=== PATIENT | female | born 1950 | race Caucasian/White ===

== ENCOUNTER 2018-11-01 12:05 | Observation (INO) | payer MEDICARE, BC ==
[2018-11-01 12:49] LABS: CHLORIDE,CL 103 mmol/L (98-107); SODIUM,NA 141 mmol/L (136-145)
[2018-11-01] MEDS ORDERED: Morphine 4 MG/ML Syringe IVPUSH ONE (12:51)
[2018-11-01] MEDS ORDERED: Ondansetron 4 MG/2 ML SDV IVPUSH ONE (12:51)
[2018-11-01] MEDS ORDERED: Iopamidol 612 MG/ML 100 ML Bottle IVPUSH ONE (13:00)
[2018-11-01] MEDS: Sodium Chloride 0.9% 10 ML Syringe FLUSH PRN (13:10)
[2018-11-01] MEDS ORDERED: Metoprolol Tartrate 25 MG Tab PO ONE (13:34)
--- NOTE | 2018-11-01 13:35 | EDM.PDOC ---
ED HPI GENERAL MEDICAL PROBLEM - General Chief Complaint: General Stated Complaint: neck pain, tongue pain, ear pain, right sided Time Seen by Provider: 11/01/18 12:34 Source of Information: Reports: Patient History Limitations: Reports: No Limitations - History of Present Illness INITIAL COMMENTS - FREE TEXT/NARRATIVE: 5 day history of increasing right jaw pain. Radiates to ear/down neck. Sharp, stabbing at times. Difficult to swallow. No change in hearing/vision/ taste. Did have episodic right tongue numbness. No obvious swelling. No fevers/chills. No history of similar pain in past. No specific tooth pain. Worse laying down, swallowing, or when turning head. No history of trauma. History of chronic sinusitis. No rashes/skin changes. Duration: Constant, Getting Worse right ear, jaw, tongue, neck Pain Score (Numeric/FACES): 7 - Related Data Allergies Allergy/AdvReac Type Severity Reaction Status Date / Time codeine Allergy Headache Verified 11/01/18 12:17 Home Meds: Home Meds Insulin Detemir [Levemir] 18 unit SUBCUT BEDTIME 11/01/18 [History] Lansoprazole [Prevacid] 30 mg PO DAILY 11/01/18 [History] Non-Formulary Medication [NF Drug] 1 each PO DAILY 11/01/18 [History] Non-Formulary Medication [NF Drug] 1 each PO DAILY 11/01/18 [History] Non-Formulary Medication [NF Drug] 1 injection SUBCUT BEDTIME 11/01/18 [History] atorvaSTATin [Lipitor] 10 mg PO BEDTIME 11/01/18 [History] metFORMIN HCl [Glucophage] 1,000 mg PO BID 11/01/18 [History] Past Medical History Gastrointestinal History: Reports: GERD Psychiatric History: Reports: Anxiety, Depression Endocrine/Metabolic History: Reports: IDDM, Obesity/BMI 30+ Social & Family History - Family History Family Medical History: Noncontributory - Tobacco Use Smoking Status *Q: Former Smoker (Quit 2000) - Caffeine Use Caffeine Use: Reports: Coffee - Alcohol Use Alcohol Use History: No Alcohol Use in Last Twelve Months: No - Recreational Drug Use Recreational Drug Use: No Drug Use in Last 12 Months: No ED ROS GENERAL - Review of Systems Review Of Systems: See Below Constitutional: Reports: Decreased Appetite. Denies: Fever, Chills, Weakness, Night Sweats, Diaphoresis HEENT: Reports: Sinus Problem (chronic), Other (right sided mid face pain as described in HPI. Radiates towards right ear and down right neck). Denies: Dental Pain, Ear Pain, Hearing Loss, Rhinitis, Throat Swelling, Vertigo, Vision Change Respiratory: Reports: No Symptoms Cardiovascular: Reports: No Symptoms Endocrine: Reports: Other (Has diabetes, does not check sugars. ) GI/Abdominal: Reports: No Symptoms : Reports: No Symptoms Musculoskeletal: Reports: Neck Pain Skin: Reports: No Symptoms Neurological: Reports: Numbness (right tongue). Denies: Confusion, Dizziness, Headache, Trouble Speaking, Difficulty Walking, Weakness, Change in Speech, Gait Disturbance Psychiatric: Reports: Anxiety ED EXAM, GENERAL - Physical Exam Exam: See Below Exam Limited By: No Limitations General Appearance: Alert, WD/WN, Moderate Distress Eye Exam: Bilateral Eye: EOMI, PERRL Ears: Normal External Exam, Normal Canal, Hearing Grossly Normal, Normal TMs Nose: No: Nasal Deformity, Nasal Swelling, Nasal Drainage Throat/Mouth: Normal Lips, Normal Teeth, Normal Gums, Normal Voice, No Airway Compromise, Other (palpation over teeth does not trigger pain complaint) Head: Atraumatic, Normocephalic. No: Facial Swelling, Facial Tenderness, Sinus Tenderness Neck: Supple, Other (unable to reproduce pain with palpation of neck tissue). No: Lymphadenopathy (L), Lymphadenopathy (R) Respiratory/Chest: No Respiratory Distress, Lungs Clear, Normal Breath Sounds, No Accessory Muscle Use Cardiovascular: Regular Rate, Rhythm, No Murmur GI/Abdominal: Soft, Non-Tender (Female) Exam: Deferred Rectal (Female) Exam: Deferred Back Exam: No: CVA Tenderness (L), CVA Tenderness (R) Extremities: Normal Range of Motion, Normal Capillary Refill Neurological: Alert, Oriented, CN II-XII Intact, Normal Cognition, Normal Gait, No Motor/Sensory Deficits Psychiatric: Anxious Skin Exam: Warm, Dry, Intact, Normal Color, No Rash EKG INTERPRETATION EKG Date: 11/01/18 Time: 12:36 Rhythm: NSR Rate (Beats/Min): 78 [place]: Normal P-Wave: Present QRS: Normal ST-T: Normal QT: Normal Course - Vital Signs Last Recorded V/S: Last Vital Signs Temp 37.1 C 11/01/18 12:10 Pulse 73 11/01/18 14:10 Resp 17 11/01/18 14:10 BP 133/80 11/01/18 14:39 Pulse Ox 93 L 11/01/18 14:10 - Orders/Labs/Meds Orders: Active Orders 24 hr Category Date Time Status EKG Documentation Completion [RC] ASDIRECTED Care 11/01/18 12:18 Active Soft Tissue Neck w Cont [CT] Stat Exams 11/01/18 12:36 Taken CRP [C-REACTIVE PROTEIN] [CHEM] Stat Lab 11/01/18 13:41 Ordered SEDIMENTATION RATE AUTO [HEME] Stat Lab 11/01/18 13:40 Ordered Sodium Chloride 0.9% [Saline Flush] Med 11/01/18 13:04 Active 10 ml FLUSH ASDIRECTED PRN Medication Orders Sodium Chloride (Saline Flush) 10 ml FLUSH ASDIRECTED PRN PRN Reason: Keep Vein Open Last Admin: 11/01/18 13:10 Dose: 10 ml Labs: Laboratory Tests 11/01/18 11/01/18 11/01/18 Range/Units 12:30 12:30 12:30 WBC 10.5 H (4.0-10.2) K/uL RBC 4.59 (3.77-5.09) M/uL Hgb 13.6 (11.7-15.5) g/dL Hct 41.0 (34.0-46.0) % MCV 89.3 (84.0-98.0) fL MCH 29.6 (28.2-33.3) pg MCHC 33.2 (31.7-36.0) g/dL RDW 14.4 H (11.2-14.1) % Plt Count 301 (150-350) K/uL Neut % (Auto) 69.6 (45.0-80.0) % Lymph % (Auto) 21.7 (10.0-50.0) % [place] % (Auto) 5.2 (2.0-14.0) % Eos % (Auto) 3.2 (0.0-5.0) % Baso % (Auto) 0.3 (0.0-2.0) % Neut # (Auto) 7.33 H (1.40-7.00) K/uL Lymph # (Auto) 2.29 (0.50-3.50) K/uL [place] # (Auto) 0.55 (0.00-1.00) K/uL Eos # (Auto) 0.34 (0.00-0.50) K/uL Baso # (Auto) 0.03 (0.00-0.20) K/uL Sodium 141 (136-145) mmol/L Potassium 4.0 (3.5-5.1) mmol/L Chloride 103 (98-107) mmol/L Carbon Dioxide 24.0 (21.0-32.0) mmol/L BUN 13 (7-18) mg/dL Creatinine 0.62 (0.51-1.17) mg/dL Est Cr Clr Drug Dosing TNP Estimated GFR (MDRD) > 60 mL/min Glucose 206 H (74-106) mg/dL Lactic Acid 2.6 H (0.4-2.0) mmol/L Calcium 8.9 (8.5-10.1) mg/dL Total Bilirubin 0.4 (0.2-1.0) mg/dL AST 17 (15-37) U/L ALT 41 (12-78) U/L Alkaline Phosphatase 114 (46-116) IU/L Troponin I 0.000 (0.000-0.056) ng/mL Total Protein 7.5 (6.4-8.2) g/dL Albumin 4.1 (3.4-5.0) g/dL Meds: Medications Generic Name Dose Route Start Last Admin Trade Name Freq PRN Reason Stop Dose Admin Sodium Chloride 10 ml 11/01/18 13:04 11/01/18 13:10 Saline Flush FLUSH 10 ml ASDIRECTED PRN Administration Keep Vein Open Discontinued Medications Generic Name Dose Route Start Last Admin Trade Name Freq PRN Reason Stop Dose Admin Iopamidol 100 ml 11/01/18 13:00 Isovue-300 (61%) IVPUSH 11/01/18 13:01 ONETIME ONE Metoprolol Tartrate 25 mg 11/01/18 13:34 11/01/18 13:51 Lopressor PO 11/01/18 13:35 25 mg ONETIME ONE Administration Morphine Sulfate 4 mg 11/01/18 12:51 11/01/18 13:08 Morphine IVPUSH 11/01/18 12:52 4 mg ONETIME ONE Administration Ondansetron HCl 4 mg 11/01/18 12:51 11/01/18 13:08 Zofran IVPUSH 11/01/18 12:52 4 mg ONETIME ONE Administration - Re-Assessments/Exams Free Text/Narrative Re-Assessment/Exam: 11/01/18 13:[address] of neck ordered after Radiology recommended this as being best focal study given history and presentation. MS for pain given. WBC mildly elevated. Lactic acid elevated. 11/01/18 15:05 BP improved after MS. Call placed to [facility] and patient discussed with from ENT. Given history and presentation, lack of physical findings, and negative CT, he feels that this sounds more like a Trigeminal Neuralgia complaint. Recommended follow up with Neuro and ENT if symptoms do not improve. Patient finally able to lay down flat after MS. Willing to be admitted to observation so that we can monitor her response to pain interventions as well as continue to monitor her BP and blood sugars. Departure - Departure Time of Disposition: 14:41 Disposition: Refer to Observation Condition: Good Clinical Impression: Acute facial pain Hypertension Qualifiers: Hypertension type: unspecified Qualified Code(s): I10 - Essential (primary) hypertension - Discharge Information Referrals: Belinda Valenzuela PA-C [Primary Care Provider] - Forms: ED Department Discharge - Problem List & Annotations (1) Acute facial pain SNOMED Code(s): 931331622 Code(s): R51 - HEADACHE Status: Acute Priority: High Onset Date: ~10/21 Annotation/Comment:: right sided pain midface, lower jaw, radiates down toward neck and to right ear. Worse laying flat, turning head/opening jaw. Unremarkable CT other than large styloid processes. Discussed patient with on-call ENT from [place]. He felt that pattern most likely reflects Trigeminal Neuralgia. Recommended Gabapentin and steroids, as well as follow up with Neuro and ENT if symptoms persist. Literature review shows Carbamazepine is recommended and FDA approved for this indication. Palpation of face does NOT trigger pain, which one would usually find in Trigeminal Neuralgia patients. Also, pain never completely goes away, which is also atypical of Trigeminal Neuralgia. Consider other causes of pain, including TMJ arthritis. Consider MRI study for further workup. Also differential includes pain related to patient's long styloid processes. (2) Hypertension SNOMED Code(s): 58705351 Code(s): I10 - ESSENTIAL (PRIMARY) HYPERTENSION Status: Acute Priority: High Annotation/Comment:: Significantly elevated BP noted upon arrival. Patient denies history of HTN. Improved once pain improved, also given Metoprolol. Monitor for trends. Qualifiers: Hypertension type: unspecified Qualified Code(s): I10 - Essential (primary ) hypertension (3) Diabetes SNOMED Code(s): 50030566 Code(s): E11.9 - TYPE 2 DIABETES MELLITUS WITHOUT COMPLICATIONS Status: Chronic Priority: Medium Annotation/Comment:: Poorly controlled. Patient continues to eat high glycemic diet. Does not check blood sugars at all at home. Is on insulin. Anticipate acute elevation of blood sugars secondary to steroids that have been ordered for facial pain. (4) Anxiety and depression SNOMED Code(s): 58690258 Code(s): F41.9 - ANXIETY DISORDER, UNSPECIFIED; F32.9 - MAJOR DEPRESSIVE DISORDER, SINGLE EPISODE, UNSPECIFIED Status: Chronic Priority: Low Annotation/Comment:: Currently not under therapy, patient stopped taking meds due to side effects of somnolence. Denies suicidal/homicidal thoughts. (5) Thyroid nodule SNOMED Code(s): 471299963 Code(s): E04.1 - NONTOXIC SINGLE THYROID NODULE Status: Acute Priority: Medium Annotation/Comment:: Right thyroid nodule noted on CT. US study recommended by Radiology. - Problem List Review Problem List Initiated/Reviewed/Updated: Yes - My Orders Last 24 Hours: My Active Orders 11/01/18 12:18 EKG Documentation Completion [RC] ASDIRECTED 11/01/18 12:36 Soft Tissue Neck w Cont [CT] Stat 11/01/18 13:04 Sodium Chloride 0.9% [Saline Flush] 10 ml FLUSH ASDIRECTED PRN 11/01/18 13:40 SEDIMENTATION RATE AUTO [HEME] Stat 11/01/18 13:41 CRP [C-REACTIVE PROTEIN] [CHEM] Stat - Assessment/Plan Admission H&P: Please use this note as an admission H&P Last 24 Hours: My Active Orders 11/01/18 12:18 EKG Documentation Completion [RC] ASDIRECTED 11/01/18 12:36 Soft Tissue Neck w Cont [CT] Stat 11/01/18 13:04 Sodium Chloride 0.9% [Saline Flush] 10 ml FLUSH ASDIRECTED PRN 11/01/18 13:40 SEDIMENTATION RATE AUTO [HEME] Stat 11/01/18 13:41 CRP [C-REACTIVE PROTEIN] [CHEM] Stat Assessment:: Facial and neck pain. Worsened by movement. Differential as discussed above. Elevated blood pressures. Plan: as above. Anticipate 1-2 day stay if patient responds favorably to interventions. Patient is stable and appropriate for general supervision.
[2018-11-01] MEDS ORDERED: methylPREDNISolone Sodium Succinate 125 MG/2 ML SDV IVPUSH ONE (14:52)
[2018-11-01] MEDS ORDERED: Acetaminophen 325 MG Tab PO PRN (15:31)
[2018-11-01] MEDS ORDERED: Acetaminophen/oxyCODONE 325-5 MG Tab PO PRN (15:31)
[2018-11-01] MEDS ORDERED: Ondansetron 4 MG Tab.DIS PO PRN (15:31)
[2018-11-01 15:33] LABS: HEMOGLOBIN A1C 8.5 % (4.3-5.7)
[2018-11-01] MEDS ORDERED: carBAMazepine 100 MG Cap.ER PO ONE (15:36)
[2018-11-01] MEDS ORDERED: Gabapentin 300 MG Cap PO ONE (15:37)
[2018-11-01] MEDS ORDERED: predniSONE 20 MG Tab PO ONE (15:43)
[2018-11-01] MEDS ORDERED: Morphine 4 MG/ML Syringe IVPUSH PRN (15:48)
--- NOTE | 2018-11-01 17:15 | PCM.SN ---
- Free Text/Narrative Note: Low serum Magnesium ordered. Given Magnesium replacement. Patient to continue Magnesium supplementation when discharged home. Consider restarting patient on antidepressent at time of discharge given her chronic depression/anxiety complaints.
[2018-11-01] MEDS ORDERED: metFORMIN 500 MG Tab PO SCH (17:30)
[2018-11-01] MEDS ORDERED: atorvaSTATin 10 MG Tab PO SCH (20:00)
[2018-11-01] MEDS ORDERED: Insulin Glarg,Human.Rec.Analog 100 UNIT/ML ML SUBCUT SCH (20:00)
[2018-11-02] MEDS: Sodium Chloride 0.9% 10 ML Syringe FLUSH PRN ×2 (06:00→09:43)
[2018-11-02] MEDS ORDERED: Omeprazole 20 MG Cap.CR PO SCH (07:30)
[2018-11-02] MEDS ORDERED: carBAMazepine 100 MG Cap.ER PO SCH (08:00)
[2018-11-02] MEDS ORDERED: Gabapentin 300 MG Cap PO SCH (08:00)
[2018-11-02 08:14] VITALS: BP 135/80
[2018-11-02] MEDS ORDERED: methylPREDNISolone Sodium Succinate 125 MG/2 ML SDV IVPUSH ONE (08:40)
--- NOTE | 2018-11-02 08:40 | PCM.DCSUM1 ---
Discharge Summary - Hospital Course HPI Initial Comments: See emergency room note/admission H&P Brief History: See emergency room note/admission H&P Diagnosis: Stroke: No Modified Banning Scale: No Symptoms at All Modified Banning Scale Score: 0 - Discharge Data Discharge Date: 11/02/18 Discharge Disposition: Home, Self-Care 01 Condition: Good - Discharge Diagnosis/Problem(s) (1) Neuropathy SNOMED Code(s): 184587702 ICD Code: G62.9 - POLYNEUROPATHY, UNSPECIFIED Status: Acute Priority: High Current Visit: Yes Onset Date: ~10/28/18 Problem Details: Note ENT consultation through [facility] by ER physician prior to admission. In addition, note negative CT scan of the neck with contrast. Patient was aggressively treated with IV Solu-Medrol, Neurontin, and Tegretol with overall improvement of her pain prior to discharge. Various therapeutic options were discussed with the patient with patient only to be discharged on Tegretol for the time being. Per ENT consideration of trigeminal neuralgia with no evidence of neurological deficits, CVA type symptoms, etc.. Additional dose of IV Solu- Medrol given prior to discharge as below. Patient will continue to observe her blood sugars closely at home. She apparently wishes to change from [facility] to [facility] at this time. Close follow-up by her new regular provider , DIXIE Amaya at the [facility], as per discharge instructions. Consideration of peripheral and diabetic neuropathy with referral to either ENT or neurology at follow-up depending on her clinical course. No further Neurontin therapy at this time secondary to this now being a controlled substance, history of anxiety and depression, etc. as below. (2) Elevated lactic acid level SNOMED Code(s): 2360528 ICD Code: R79.89 - OTHER SPECIFIED ABNORMAL FINDINGS OF BLOOD CHEMISTRY Status: Acute Priority: High Current Visit: Yes Onset Date: 11/02/18 Problem Details: Despite borderline leukocytosis on admission no clinical evidence of sepsis, current infection, etc. with patient afebrile during this hospitalization. Mild progression of her leukocytosis prior to discharge likely secondary to her IV Solu-Medrol therapy. Close follow-up by her regular provider with only borderline elevated lactic acid level at time of discharge. (3) IDDM (insulin dependent diabetes mellitus) SNOMED Code(s): 72984939 ICD Code: E11.9 - TYPE 2 DIABETES MELLITUS WITHOUT COMPLICATIONS; Z79.4 - SENIOR LIVING (CURRENT) USE OF INSULIN Status: Chronic Priority: High Current Visit: Yes Problem Details: Blood sugars improved prior to discharge despite IV Solu-Medrol given during this hospitalization. Secondary to persistent mild neuralgia/neuropathy as above patient was given an additional IV Solu-Medrol dose prior to discharge. Dietary information concerning her diabetes and hyperlipidemia was also provided at discharge. Compliance with diet and twice a day Accu-Cheks were also extensively discussed. Close follow-up as per discharge instructions. Patient already has an eye appointment scheduled for tomorrow for further evaluation of her beginning cataracts with no apparent diabetic retinopathy to this point. (4) Hypertension SNOMED Code(s): 46419258 ICD Code: I10 - ESSENTIAL (PRIMARY) HYPERTENSION Status: Chronic Priority : High Current Visit: Yes Problem Details: Significantly elevated BP noted upon arrival in the emergency room, however much improved prior to discharge. Some anxiety component to her blood pressures, however patient now states that she has had problems with elevated blood pressure in the past with no treatment to this point. Various therapeutic options were discussed. Initiate low-dose lisinopril for treatment of her hypertension and as prophylaxis for microvascular disease secondary to her IDDM. Follow-up blood work, etc. as per discharge orders. She was given metoprolol during this hospitalization, secondary to her IDDM and depression this will be discontinued at this time. Qualifiers: Hypertension type: essential hypertension Qualified Code(s): I10 - Essential (primary) hypertension (5) Thyroid nodule SNOMED Code(s): 205253022 ICD Code: E04.1 - NONTOXIC SINGLE THYROID NODULE Status: Acute Priority: High Current Visit: Yes Onset Date: 11/01/18 Problem Details: Right thyroid nodule noted on CT as incidental finding. US study recommended by Radiology with this to be conducted on an outpatient basis as per discharge instructions. (6) Anxiety and depression SNOMED Code(s): 69465480 ICD Code: F41.9 - ANXIETY DISORDER, UNSPECIFIED; F32.9 - MAJOR DEPRESSIVE DISORDER, SINGLE EPISODE, UNSPECIFIED Status: Chronic Priority: High Current Visit: Yes Problem Details: Currently not under therapy with patient apparently stopping Effexor due to side effects of somnolence a few months ago. She does wish to start on a different antidepressant at this time with initiation of low-dose Celexa for now. Her apparently does not understand her depression with extensive emotional support provided by me today during rounds. Close follow-up by her new regular provider with consideration of mini-counseling sessions, increase of Effexor, referral for psychotherapy, etc. depending on her clinical course. She denied suicidal/homicidal thoughts in the past to the admitting physician, however she did alert the nurse later during this hospitalization that she has had suicidal ideation in the past without plan. (7) Hyperlipidemia SNOMED Code(s): 06511540 ICD Code: E78.5 - HYPERLIPIDEMIA, UNSPECIFIED Status: Chronic Priority: Medium Current Visit: Yes Problem Details: Currently under therapy. Dietary information provided at discharge. Weight loss in moderation advisable. Close follow-up by her new regular provider. Qualifiers: Hyperlipidemia type: other hyperlipidemia Qualified Code(s): E78.49 - Other hyperlipidemia; E78.4 - Other hyperlipidemia (8) Peptic reflux disease SNOMED Code(s): 217191264 ICD Code: K21.9 - GASTRO-ESOPHAGEAL REFLUX DISEASE WITHOUT ESOPHAGITIS Status: Chronic Priority: Medium Current Visit: Yes Problem Details: Stable by history and her current medical therapy. (9) Hypomagnesemia SNOMED Code(s): 213646011 ICD Code: E83.42 - HYPOMAGNESEMIA Status: Acute Priority: Medium Current Visit: Yes Onset Date: 11/02/18 Problem Details: IV magnesium sulfate given during this hospitalization. Continuation of oral magnesium supplement, which would also be beneficial for her neuropathy. Close follow-up by regular provider. Discuss possible additional preventative medications for your headaches with your regular provider. Magnesium level normal at discharge. - Patient Summary/Data Operative Procedure(s) Performed: None Complications: None Consults: ENT consultation from [facility] as per emergency room note. Labs Pending at D/C: None Recommended Follow-up Testing/Procedures: As per discharge instructions Planned Operative Procedure(s) after DC: None Hospital Course: The patient was initially evaluated in the emergency room by on-call physician with initial negative preliminary report of CT scan of the neck with contrast. Note ENT consultation with treatment recommendations given as per the emergency room note. Adjustment of medical therapy at discharge as above. Patient was placed in observation status with significantly improved symptoms, blood pressure, etc. at time of discharge. Otherwise aggressive treatment of various abnormalities during this hospitalization as above. - Patient Instructions Diet: Heart Healthy Diet, Diabetic Diet (1500-calorie) Activity: As Tolerated Driving: May Drive Today Showering/Bathing: May Shower Notify Provider of: Increased Pain, Swelling and Redness, Nausea and/or Vomiting Other/Special Instructions: 1. Followup with your new regular provider in 7-10 days, DIXIE Amaya at the [facility], as directed for reevaluation and recommended repeat CBC, basic metabolic panel, lactic acid, and magnesium level. Lipid panel in the near future would also be advisable. Bring these discharge instructions with you to that visit. 2. Maintain Accu- Cheks on a twice a day, i.e., before breakfast and before supper, basis and bring this record to each follow-up visit with your regular providers, etc. as discussed. 3. Close follow up of your blood pressures and pulses with your new regular provider. 4. Thyroid ultrasound on an outpatient basis as per discharge instructions with this facility to call you with an exact time and date. Results will be discussed with your regular provider when available, including at the above follow-up. 5. Closely follow your anxiety and depression with your new regular provider with consideration of further change in your medical therapy, minicounseling sessions in that office, psychotherapy referral, etc. depending on your clinical course. 6. Tylenol 650 mg by mouth every 4 hours and/or OTC Aleve 12 tabs by mouth every 12 hours with food as directed/needed. You may stagger these medications for 48-72 hours only, which essentially means that you are receiving a pain medication about every 2 hours. - Discharge Plan *PRESCRIPTION DRUG MONITORING PROGRAM REVIEWED*: Not Applicable *COPY OF PRESCRIPTION DRUG MONITORING REPORT IN PATIENT [place]: Not Applicable Prescriptions/Med Rec: carBAMazepine [TEGretol XR] 100 mg PO BID #30 cap.er Citalopram Hydrobromide [Celexa] 10 mg PO DAILY #30 tablet Lisinopril 10 mg PO DAILY #14 tablet Magnesium Oxide 400 mg PO DAILY #20 tab Home Medications: Home Meds Insulin Detemir [Levemir] 18 unit SUBCUT BEDTIME 11/01/18 [History] Lansoprazole [Prevacid] 30 mg PO DAILY 11/01/18 [History] Non-Formulary Medication [NF Drug] 1 each PO DAILY 11/01/18 [History] Non-Formulary Medication [NF Drug] 1 each PO DAILY 11/01/18 [History] metFORMIN HCl [Glucophage] 1,000 mg PO BID 11/01/18 [History] Acetaminophen [Tylenol] 650 mg PO Q4H PRN tablet 11/02/18 [Rx] Citalopram Hydrobromide [Celexa] 10 mg PO DAILY #30 tablet 11/02/18 [Rx] Liraglutide [Victoza] 1.8 mg SQ DAILY 11/02/18 [History] Lisinopril 10 mg PO DAILY #14 tablet 11/02/18 [Rx] Magnesium Oxide 400 mg PO DAILY #20 tab 11/02/18 [Rx] atorvaSTATin Calcium [Lipitor] 20 mg PO DAILY 11/02/18 [History] carBAMazepine [TEGretol XR] 100 mg PO BID #30 cap.er 11/02/18 [Rx] Patient Handouts: Metoprolol tablets, Peripheral Neuropathy, Hypertension, Easy -to-Read, Fat and Cholesterol Restricted Diet, [id number], Trigeminal Neuralgia, Diabetes Mellitus and Nutrition Forms: ED Department Discharge Referrals: Belinda Valenzuela PA-C [Primary Care Provider] - - Discharge Summary/Plan Comment DC Time >30 min.: Yes (Coordination of care ) Discharge Summary/Plan Comment: As above. Extensive precautions were given to the patient, who is in agreement with the treatment plan. See Patient Instructions for further treatment and plan. - General Info Date of Service: 11/02/18 Admission Dx/Problem (Free Text: 1. Neuropathy 2. Hypertension 3. IDDM Functional Status: Reports: Pain Controlled, Tolerating Diet, Ambulating, Urinating, New Symptoms. Denies: Incentive Spirometry Numeric/FACES Score: 2 - Review of Systems General: Reports: Other (Improved right facial neuropathy). Denies: Fever, Weakness, Fatigue, Malaise, Chills, Night Sweats, Appetite (Good) HEENT: Reports: Glasses. Denies: Ear Pain, Eye Pain, Headaches, Post Nasal Drip , Sinus Congestion, Sore Throat, Rhinitis, Visual Changes Pulmonary: Reports: No Symptoms. Denies: Shortness of Breath, Pleuritic Chest Pain, Cough, Sputum, Hemoptysis, Wheezing Cardiovascular: Reports: No Symptoms. Denies: Chest Pain, Dyspnea on Exertion, Orthopnea, PND, Edema Gastrointestinal: Reports: No Symptoms. Denies: Abdominal Pain, Constipation ( No bowel movement during this hospitalization), Decreased Appetite, Diarrhea, Difficulty Swallowing (Resolved), Flatus, Hematochezia, Melena, Nausea, Vomiting Genitourinary: Reports: No Symptoms. Denies: Dysuria, Frequency, Burning, Pain , Urgency, Incontinence, Hematuria, Retention, Flank Pain Musculoskeletal: Reports: No Symptoms. Denies: Neck Pain, Shoulder Pain, Arm Pain, Back Pain, Leg Pain Skin: Reports: No Symptoms. Denies: Diaphoresis, Bruising Neurological: Reports: Numbness (As above), Paresthesia (As above), Tingling ( As above), Other. Denies: Confusion, Dizziness, Headache, Pre-Existing Deficit , Seizure, Syncope, Tremors, Trouble Speaking, Weakness Psychiatric: Reports: Depression (Moderate), Anxiety (Mild to moderate), Suicidal Ideation (In the past as above). Denies: Confusion, Mood Lability, Agitation, Cravings, Hallucinations, Homicidal Ideation - Patient Data Vitals - Most Recent: Last Vital Signs Temp 36.6 C 11/02/18 08:00 Pulse 70 11/02/18 08:00 Resp 16 11/02/18 08:00 BP 135/80 11/02/18 08:00 Pulse Ox 98 11/02/18 08:00 Vital Signs - 24 hr 11/01/18 11/01/18 11/01/18 12:10 12:22 12:37 Temperature [ 37.1 C Oral] Temperature [ Temporal] Pulse, Peripheral Pulse, Peripheral [ Left Pulse Oximetry] Pulse, 87 88 86 Peripheral [ Right Brachial] Respiratory 20 18 18 Rate Blood Pressure Blood Pressure 179/109 H 156/120 H 153/70 H [Left Upper Arm ] Blood Pressure 168/146 H [Right Upper Arm] O2 Sat by Pulse 96 98 97 Oximetry 11/01/18 11/01/18 11/01/18 12:52 13:07 13:30 Temperature [ Oral] Temperature [ Temporal] Pulse, Peripheral Pulse, Peripheral [ Left Pulse Oximetry] Pulse, 87 87 85 Peripheral [ Right Brachial] Respiratory 18 18 Rate Blood Pressure Blood Pressure 128/73 153/105 H 134/87 [Left Upper Arm ] Blood Pressure [Right Upper Arm] O2 Sat by Pulse 98 98 Oximetry 04/14/19 04/14/19 04/14/19 13:51 14:10 14:39 Temperature [ Oral] Temperature [ Temporal] Pulse, 78 Peripheral Pulse, Peripheral [ Left Pulse Oximetry] Pulse, 73 Peripheral [ Right Brachial] Respiratory 17 Rate Blood Pressure 125/106 H Blood Pressure 124/72 133/80 [Left Upper Arm ] Blood Pressure [Right Upper Arm] O2 Sat by Pulse 93 L Oximetry 11/01/18 11/01/18 11/02/18 15:43 20:00 08:00 Temperature [ 36.2 C 36.6 C Oral] Temperature [ 36.6 C Temporal] Pulse, Peripheral Pulse, 70 Peripheral [ Left Pulse Oximetry] Pulse, 78 69 Peripheral [ Right Brachial] Respiratory 16 18 16 Rate Blood Pressure Blood Pressure 137/65 136/75 [Left Upper Arm ] Blood Pressure 135/80 [Right Upper Arm] O2 Sat by Pulse 97 96 98 Oximetry Weight - Most Recent: 88.723 kg I&O - Last 24 hours: Intake & Output 11/01/18 11/02/18 11/02/18 22:59 06:59 14:59 Intake Total 520 360 Balance 520 360 Imaging Impressions - Last 24 hrs: Preliminary verbal report of CT scan of the neck with IV contrast on 11/01/18 was negative with exception of incidental finding of a thyroid nodule with recommended follow-up ultrasound by radiology Lab Results - Last 24 hrs: Laboratory Results - last 24 hr 11/01/18 11/01/18 11/01/18 Range/Units 12:30 12:30 12:30 WBC 10.5 H (4.0-10.2) K/uL RBC 4.59 (3.77-5.09) M/uL Hgb 13.6 (11.7-15.5) g/dL Hct 41.0 (34.0-46.0) % MCV 89.3 (84.0-98.0) fL MCH 29.6 (28.2-33.3) pg MCHC 33.2 (31.7-36.0) g/dL RDW 14.4 H (11.2-14.1) % Plt Count 301 (150-350) K/uL Neut % (Auto) 69.6 (45.0-80.0) % Lymph % (Auto) 21.7 (10.0-50.0) % [place] % (Auto) 5.2 (2.0-14.0) % Eos % (Auto) 3.2 (0.0-5.0) % Baso % (Auto) 0.3 (0.0-2.0) % Neut # (Auto) 7.33 H (1.40-7.00) K/uL Lymph # (Auto) 2.29 (0.50-3.50) K/uL [place] # (Auto) 0.55 (0.00-1.00) K/uL Eos # (Auto) 0.34 (0.00-0.50) K/uL Baso # (Auto) 0.03 (0.00-0.20) K/uL ESR (0-30) mm/hr Sodium 141 (136-145) mmol/L Potassium 4.0 (3.5-5.1) mmol/L Chloride 103 (98-107) mmol/L Carbon Dioxide 24.0 (21.0-32.0) mmol/L BUN 13 (7-18) mg/dL Creatinine 0.62 (0.51-1.17) mg/dL Est Cr Clr Drug Dosing TNP Estimated GFR (MDRD) > 60 mL/min Glucose 206 H (74-106) mg/dL POC Glucose (65-110) mg/dl Hemoglobin A1c (4.3-5.7) % Lactic Acid 2.6 H (0.4-2.0) mmol/L Calcium 8.9 (8.5-10.1) mg/dL Magnesium (1.8-2.4) mg/dL Total Bilirubin 0.4 (0.2-1.0) mg/dL AST 17 (15-37) U/L ALT 41 (12-78) U/L Alkaline Phosphatase 114 (46-116) IU/L Troponin I 0.000 (0.000-0.056) ng/mL C-Reactive Protein (<=0.9) mg/dL Total Protein 7.5 (6.4-8.2) g/dL Albumin 4.1 (3.4-5.0) g/dL 11/01/18 11/01/18 11/01/18 Range/Units 13:00 13:00 13:00 WBC (4.0-10.2) K/uL RBC (3.77-5.09) M/uL Hgb (11.7-15.5) g/dL Hct (34.0-46.0) % MCV (84.0-98.0) fL MCH (28.2-33.3) pg MCHC (31.7-36.0) g/dL RDW (11.2-14.1) % Plt Count (150-350) K/uL Neut % (Auto) (45.0-80.0) % Lymph % (Auto) (10.0-50.0) % [place] % (Auto) (2.0-14.0) % Eos % (Auto) (0.0-5.0) % Baso % (Auto) (0.0-2.0) % Neut # (Auto) (1.40-7.00) K/uL Lymph # (Auto) (0.50-3.50) K/uL [place] # (Auto) (0.00-1.00) K/uL Eos # (Auto) (0.00-0.50) K/uL Baso # (Auto) (0.00-0.20) K/uL ESR 19 (0-30) mm/hr Sodium (136-145) mmol/L Potassium (3.5-5.1) mmol/L Chloride (98-107) mmol/L Carbon Dioxide (21.0-32.0) mmol/L BUN (7-18) mg/dL Creatinine (0.51-1.17) mg/dL Est Cr Clr Drug Dosing Estimated GFR (MDRD) mL/min Glucose (74-106) mg/dL POC Glucose (65-110) mg/dl Hemoglobin A1c 8.5 H (4.3-5.7) % Lactic Acid (0.4-2.0) mmol/L Calcium (8.5-10.1) mg/dL Magnesium (1.8-2.4) mg/dL Total Bilirubin (0.2-1.0) mg/dL AST (15-37) U/L ALT (12-78) U/L Alkaline Phosphatase (46-116) IU/L Troponin I (0.000-0.056) ng/mL C-Reactive Protein 0.1 (<=0.9) mg/dL Total Protein (6.4-8.2) g/dL Albumin (3.4-5.0) g/dL 11/01/18 11/01/18 11/01/18 Range/Units 15:15 17:09 21:04 WBC (4.0-10.2) K/uL RBC (3.77-5.09) M/uL Hgb (11.7-15.5) g/dL Hct (34.0-46.0) % MCV (84.0-98.0) fL MCH (28.2-33.3) pg MCHC (31.7-36.0) g/dL RDW (11.2-14.1) % Plt Count (150-350) K/uL Neut % (Auto) (45.0-80.0) % Lymph % (Auto) (10.0-50.0) % [place] % (Auto) (2.0-14.0) % Eos % (Auto) (0.0-5.0) % Baso % (Auto) (0.0-2.0) % Neut # (Auto) (1.40-7.00) K/uL Lymph # (Auto) (0.50-3.50) K/uL [place] # (Auto) (0.00-1.00) K/uL Eos # (Auto) (0.00-0.50) K/uL Baso # (Auto) (0.00-0.20) K/uL ESR (0-30) mm/hr Sodium (136-145) mmol/L Potassium (3.5-5.1) mmol/L Chloride (98-107) mmol/L Carbon Dioxide (21.0-32.0) mmol/L BUN (7-18) mg/dL Creatinine (0.51-1.17) mg/dL Est Cr Clr Drug Dosing Estimated GFR (MDRD) mL/min Glucose (74-106) mg/dL POC Glucose 205 H 392 H* (65-110) mg/dl Hemoglobin A1c (4.3-5.7) % Lactic Acid (0.4-2.0) mmol/L Calcium (8.5-10.1) mg/dL Magnesium 1.7 L (1.8-2.4) mg/dL Total Bilirubin (0.2-1.0) mg/dL AST (15-37) U/L ALT (12-78) U/L Alkaline Phosphatase (46-116) IU/L Troponin I (0.000-0.056) ng/mL C-Reactive Protein (<=0.9) mg/dL Total Protein (6.4-8.2) g/dL Albumin (3.4-5.0) g/dL 11/02/18 Range/Units 07:29 WBC (4.0-10.2) K/uL RBC (3.77-5.09) M/uL Hgb (11.7-15.5) g/dL Hct (34.0-46.0) % MCV (84.0-98.0) fL MCH (28.2-33.3) pg MCHC (31.7-36.0) g/dL RDW (11.2-14.1) % Plt Count (150-350) K/uL Neut % (Auto) (45.0-80.0) % Lymph % (Auto) (10.0-50.0) % [place] % (Auto) (2.0-14.0) % Eos % (Auto) (0.0-5.0) % Baso % (Auto) (0.0-2.0) % Neut # (Auto) (1.40-7.00) K/uL Lymph # (Auto) (0.50-3.50) K/uL [place] # (Auto) (0.00-1.00) K/uL Eos # (Auto) (0.00-0.50) K/uL Baso # (Auto) (0.00-0.20) K/uL ESR (0-30) mm/hr Sodium (136-145) mmol/L Potassium (3.5-5.1) mmol/L Chloride (98-107) mmol/L Carbon Dioxide (21.0-32.0) mmol/L BUN (7-18) mg/dL Creatinine (0.51-1.17) mg/dL Est Cr Clr Drug Dosing Estimated GFR (MDRD) mL/min Glucose (74-106) mg/dL POC Glucose 196 H (65-110) mg/dl Hemoglobin A1c (4.3-5.7) % Lactic Acid (0.4-2.0) mmol/L Calcium (8.5-10.1) mg/dL Magnesium (1.8-2.4) mg/dL Total Bilirubin (0.2-1.0) mg/dL AST (15-37) U/L ALT (12-78) U/L Alkaline Phosphatase (46-116) IU/L Troponin I (0.000-0.056) ng/mL C-Reactive Protein (<=0.9) mg/dL Total Protein (6.4-8.2) g/dL Albumin (3.4-5.0) g/dL [facility] Results - Last 24 hrs: None Med Orders - Current: Current Medications Acetaminophen (Tylenol) 650 mg PO Q4H PRN PRN Reason: Pain (Mild 1-3)/fever Atorvastatin Calcium (Lipitor) 10 mg PO BEDTIME [facility] Last Admin: 11/01/18 19:10 Dose: 10 mg Carbamazepine (Tegretol Xr) 100 mg PO BID [facility] Last Admin: 11/02/18 07:53 Dose: 100 mg Gabapentin (Neurontin) 300 mg PO DAILY [facility] Last Admin: 11/02/18 07:53 Dose: 300 mg Insulin Glargine (Lantus) 18 unit SUBCUT BEDTIME [facility] Last Admin: 11/01/18 19:10 Dose: 18 unit Morphine Sulfate (Morphine) 4 mg IVPUSH Q2H PRN PRN Reason: Pain (severe 7-10) Omeprazole (Omeprazole) 20 mg PO ACBREAKFAST [facility] Last Admin: 11/02/18 07:53 Dose: 20 mg Ondansetron HCl (Zofran Odt) 4 mg PO Q6H PRN PRN Reason: Nausea/Vomiting Sodium Chloride (Saline Flush) 10 ml FLUSH ASDIRECTED PRN PRN Reason: Keep Vein Open Last Admin: 11/02/18 06:00 Dose: 10 ml Discontinued Medications Carbamazepine (Tegretol Xr) 100 mg PO ONETIME ONE Stop: 11/01/18 15:37 Last Admin: 11/01/18 17:03 Dose: 100 mg Gabapentin (Neurontin) 300 mg PO ONETIME ONE Stop: 11/01/18 15:38 Last Admin: 11/01/18 17:02 Dose: 300 mg Iopamidol (Isovue-300 (61%)) 100 ml IVPUSH ONETIME ONE Stop: 11/01/18 13:01 Last Admin: 11/01/18 16:31 Dose: Not Given Magnesium Sulfate/Dextrose (Magnesium 1 Gm In D5w 100 Ml) 1 gm IV ONETIME ONE Stop: 11/01/18 17:01 Last Admin: 11/01/18 17:02 Dose: 1 gm Magnesium Sulfate/Dextrose (Magnesium 1 Gm In D5w 100 Ml) 1 gm IV ONETIME ONE Stop: 11/02/18 06:01 Last Admin: 11/02/18 05:59 Dose: 1 gm Metformin HCl (Glucophage) 1,000 mg PO BIDMEALS EDMUND Methylprednisolone Sodium Succinate (Solu-Medrol) 125 mg IVPUSH ONETIME ONE Stop: 11/01/18 14:53 Last Admin: 11/01/18 16:33 Dose: Not Given Metoprolol Tartrate (Lopressor) 25 mg PO ONETIME ONE Stop: 11/01/18 13:35 Last Admin: 11/01/18 13:51 Dose: 25 mg Morphine Sulfate (Morphine) 4 mg IVPUSH ONETIME ONE Stop: 11/01/18 12:52 Last Admin: 11/01/18 13:08 Dose: 4 mg Ondansetron HCl (Zofran) 4 mg IVPUSH ONETIME ONE Stop: 11/01/18 12:52 Last Admin: 11/01/18 13:08 Dose: 4 mg Oxycodone/Acetaminophen (Percocet 325-5 Mg) 1 tab PO Q4H PRN PRN Reason: Pain (moderate 4-6) Prednisone (Prednisone) 40 mg PO ONETIME ONE Stop: 11/01/18 15:44 Last Admin: 11/01/18 17:03 Dose: 40 mg - Exam Quality Assessment: Reports: DVT Prophylaxis. Denies: Supplemental Oxygen, Central Line/PICC, Urine Catheter, Skin Breakdown, Restraints General: Reports: Alert, Oriented, Cooperative, No Acute Distress HEENT: Reports: Pupils Equal, Pupils Reactive, EOMI, Mucous Membr. Moist/[place], Other (Patient wearing glasses). Denies: Scleral Icterus Neck: Reports: Supple, Trachea Midline, No JVD, No Thyromegaly (Thyroid nodule not palpable). Denies: Lymphadenopathy Lungs: Reports: Clear to Auscultation, Normal Respiratory Effort. Denies: Rub Cardiovascular: Reports: Regular Rate, Regular Rhythm, No Murmurs, Irregular Rhythm. Denies: Gallops, Rubs GI/Abdominal Exam: Normal Bowel Sounds, Soft, Non-Tender, No Organomegaly, No Distention, No Abnormal Bruit, No Mass, Pelvis Stable, Other (Obese). No: Guarding (Female) Exam: Deferred Rectal (Female) Exam: Deferred Back Exam: Reports: Normal Inspection, Full Range of Motion. Denies: CVA Tenderness (L), CVA Tenderness (R), Muscle Spasm Extremities: Normal Inspection, Normal Range of Motion, Non-Tender, No Pedal Edema, Normal Capillary Refill. No: Rodri's Sign Skin: Reports: Warm, Dry, Intact. Denies: Ecchymosis Neurological: Reports: No New Focal Deficit, Other (Negative Babinski's with no neurological deficits) Psy/Mental Status: Reports: Anxious (Mild to moderate), Depressed (Moderate), Suicidal Ideation (In the past but not currently with no plan), Withdrawal Symptoms. Denies: Agitated, Homicidal Ideation, Hallucinations
[2018-11-02 09:33] LABS: CHLORIDE,CL 100 mmol/L (98-107); SODIUM,NA 140 mmol/L (136-145)
== END 2018-11-02 11:45 | disposition home or self-care (01) ==
LOC: LL.ED 12:05 → LL.MS 14:45 → UNDOADMOB 14:45
PROVIDERS: ADMIT Family Medicine; ATTEND Family Medicine
DX: E11.40 Type 2 diabetes mellitus with diabetic neuropathy, unspecified (principal); R79.89 Other specified abnormal findings of blood chemistry; D72.829 Elevated white blood cell count, unspecified; I10 Essential (primary) hypertension; E83.42 Hypomagnesemia; E11.36 Type 2 diabetes mellitus with diabetic cataract; E78.5 Hyperlipidemia, unspecified; E04.1 Nontoxic single thyroid nodule; F41.9 Anxiety disorder, unspecified; F32.9 Major depressive disorder, single episode, unspecified; K21.9 Gastro-esophageal reflux disease without esophagitis; Z88.5 Allergy status to narcotic agent; Z87.891 Personal history of nicotine dependence; Z79.4 Long term (current) use of insulin; Z79.899 Other long term (current) drug therapy
CPT/HCPCS: 36415; 70491; 80048; 80053; 82962; 83036; 83605; 83735; 84484; 85025; 85652; 86140; 93005; 93010; 96374; 96375; 96376; 99217; 99219; 99285-25; A9270-GY; G0378; J1815-GY; J2270; J2405; J2930; J3475; Q9967

== ENCOUNTER 2020-03-07 14:45 | Observation (INO) | payer MEDICARE, BC ==
[2020-03-07] MEDS ORDERED: Sodium Chloride 0.9% 10 ML Syringe FLUSH PRN (15:51)
[2020-03-07] MEDS ORDERED: Nitroglycerin 0.4 MG Tab.SL SL ONE (16:02)
[2020-03-07 16:17] LABS: PTT,PARTIAL THROMBOPLSTIN TIME 21.9 SEC (24.5-32.8)
[2020-03-07 16:27] LABS: CHLORIDE,CL 99 mmol/L (98-107); SODIUM,NA 132 mmol/L (136-145)
--- NOTE | 2020-03-07 17:27 | EDM.PDOC ---
ED HPI GENERAL MEDICAL PROBLEM - General Chief Complaint: Chest Pain Stated Complaint: chest pain Time Seen by Provider: 03/07/20 16:00 Source of Information: Reports: Patient History Limitations: Reports: No Limitations - History of Present Illness INITIAL COMMENTS - FREE TEXT/NARRATIVE: Patient comes to ER with a five day history of chest tightness. Feels better if she is sitting up. Feels like it is hard to take deep breath. Tight sensation upper back too. No history of similar sensation in past. Also complains of headache today/generalized. Normally does not get headaches. Has felt very fatigued since . No runny nose/sore throat/URI complaints or other HEENT changes No cough/wheeze/sputum production No palpitations or actual chest pain. Activity does not affect sensation. No emesis but reports having intermittent bouts of severe loose stools every few weeks this summer. Gets nausea with these episodes but no vomiting. Stools are not bloody. No specific trigger for these. No fevers/chills. Last episode was , the same day that the chest tightness first started. Has no idea why she is having the loose stool issue. It goes away completely in between episodes and stools are back to normal. She noted that stools again normalized by Friday for most part. No changes/UTI complaint No focal neuro changes/weakness No history of previous [place] Chest Pain Pain Score (Numeric/FACES): 5 - Related Data Allergies Allergy/AdvReac Type Severity Reaction Status Date / Time codeine Allergy Headache Verified 03/07/20 15:55 Home Meds: Home Meds Insulin Detemir [Levemir] 18 unit SUBCUT BEDTIME 11/01/18 [History] Lansoprazole [Prevacid] 30 mg PO DAILY 11/01/18 [History] Non-Formulary Medication [NF Drug] 1 each PO DAILY 11/01/18 [History] Non-Formulary Medication [NF Drug] 1 each PO DAILY 11/01/18 [History] metFORMIN HCl [Glucophage] 1,000 mg PO BID 11/01/18 [History] Acetaminophen [Tylenol] 650 mg PO Q4H PRN tablet 11/02/18 [Rx] Liraglutide [Victoza] 1.8 mg SQ DAILY 11/02/18 [History] Magnesium Oxide 400 mg PO DAILY #20 tab 11/02/18 [Rx] atorvaSTATin Calcium [Lipitor] 20 mg PO BEDTIME 11/02/18 [History] carBAMazepine [TEGretol XR] 100 mg PO BID #30 cap.er 11/02/18 [Rx] Aspirin 81 mg PO DAILY 03/07/20 [History] Lisinopril 10 mg PO DAILY 03/07/20 [History] Non-Formulary Medication [NF Drug] 1 ea PO DAILY 03/07/20 [History] Sertraline [Zoloft] 25 mg PO DAILY 03/07/20 [History] Past Medical History HEENT History: Reports: Hard of Hearing, Impaired Vision, Sinusitis Other HEENT History: has hearing aides- doesn't wear them. Has glasses Cardiovascular History: Reports: High Cholesterol, Hypertension Respiratory History: Reports: None Gastrointestinal History: Reports: GERD Genitourinary History: Reports: None TEAM GUIDE History: Reports: Musculoskeletal History: Reports: Fracture Neurological History: Reports: None Psychiatric History: Reports: Anxiety, Depression Endocrine/Metabolic History: Reports: IDDM, Obesity/BMI 30+ Oncologic (Cancer) History: Reports: Basal Cell Carcinoma Dermatologic History: Reports: None, Angiodema - Infectious Disease History Infectious Disease History: Reports: Chicken Pox, Measles - Past Surgical History HEENT Surgical History: Reports: Oral Surgery Cardiovascular Surgical History: Reports: None Respiratory Surgical History: Reports: None Female Surgical History: Reports: Breast Biopsy Musculoskeletal Surgical History: Reports: Shoulder Surgery, Other (See Below) Other Musculoskeletal Surgeries/Procedures:: right rotaor cuff repair, trigger thumb surgery to right side, history left arm fracture as a child Dermatological Surgical History: Reports: Other (See Below) Social & Family History - Family History Family Medical History: Noncontributory Neurological: Reports: Parkinson's, Other (See Below) Other Neurological Family History: mother with Parkison's - Tobacco Use Smoking Status *Q: Former Smoker Used Tobacco, but Quit: Yes Month/Year Tobacco Last Used: Quit 19 years ago Second Hand Smoke Exposure: No - Caffeine Use Caffeine Use: Reports: Coffee - Alcohol Use Alcohol Use History: No - Recreational Drug Use Recreational Drug Use: No ED ROS GENERAL - Review of Systems Review Of Systems: Comprehensive ROS is negative, except as noted in HPI. ED EXAM, GENERAL - Physical Exam Exam: See Below Exam Limited By: No Limitations General Appearance: Alert, WD/WN, No Apparent Distress Eye Exam: Bilateral Eye: EOMI, PERRL Ears: Normal External Exam, Normal Canal, Hearing Grossly Normal (hx hard of hearing/not wearing hearing aids/no problems visiting with patient while in ER), Normal TMs Nose: No: Nasal Deformity, Nasal Swelling, Nasal Drainage Throat/Mouth: Normal Lips, Normal Oropharynx, Normal Voice, No Airway Compromise Head: Atraumatic, Normocephalic Neck: Normal Inspection, Supple, Non-Tender, Full Range of Motion. No: Carotid Bruit, Lymphadenopathy (L), Lymphadenopathy (R) Respiratory/Chest: No Respiratory Distress, Lungs Clear, Normal Breath Sounds, No Accessory Muscle Use, Chest Non-Tender Cardiovascular: Regular Rate, Rhythm, No Edema, No Murmur GI/Abdominal: Normal Bowel Sounds, Soft, Non-Tender, No Distention (Female) Exam: Deferred Rectal (Female) Exam: Deferred Back Exam: Normal Inspection. No: CVA Tenderness (L), CVA Tenderness (R), Muscle Spasm, Paraspinal Tenderness, Vertebral Tenderness Extremities: Normal Inspection, Non-Tender, Normal Capillary Refill Neurological: Alert, Oriented, CN II-XII Intact, Normal Cognition, Normal Gait, No Motor/Sensory Deficits Psychiatric: Normal Affect, Normal Mood Skin Exam: Warm, Dry, Intact, Normal Color EKG INTERPRETATION EKG Date: 03/07/20 Time: 15:46 Rhythm: NSR Rate (Beats/Min): 71 [place]: Normal P-Wave: Present QRS: Normal ST-T: Normal QT: Normal Course - Vital Signs Last Recorded V/S: Last Vital Signs Temp 36.2 C 03/07/20 16:27 Pulse 71 03/07/20 16:53 Resp 18 03/07/20 16:53 BP 115/57 L 03/07/20 16:53 Pulse Ox 95 03/07/20 16:53 - Orders/Labs/Meds Orders: Active Orders 24 hr Category Date Time Status Cardiac Monitoring [RC] . DIRECTED Care 03/07/20 15:51 Active EKG Documentation Completion [RC] ASDIRECTED Care 03/07/20 15:51 Active Peripheral IV Care [RC] . DIRECTED Care 03/07/20 15:51 Active Chest 2V [CR] Stat Exams 03/07/20 15:53 Taken CORONAVIRUS COVID-19 PCR PHL Routine Lab 03/07/20 16:19 Ordered D-DIMER QUANTITATIVE [COAG] Stat Lab 03/07/20 16:18 Ordered Sodium Chloride 0.9% [Saline Flush] Med 03/07/20 15:51 Active 10 ml FLUSH ASDIRECTED PRN Peripheral IV Insertion Adult [OM.PC] Routine Oth 03/07/20 15:51 Ordered Medication Orders Sodium Chloride (Saline Flush) 10 ml FLUSH ASDIRECTED PRN PRN Reason: Keep Vein Open Labs: Laboratory Tests 03/07/20 03/07/20 03/07/20 Range/Units 15:55 15:55 15:55 WBC 8.5 (4.0-10.2) K/uL RBC 4.30 (3.77-5.09) M/uL Hgb 12.1 (11.7-15.5) g/dL Hct 37.3 (34.0-46.0) % MCV 86.7 D (84.0-98.0) fL MCH 28.1 L (28.2-33.3) pg MCHC 32.4 (31.7-36.0) g/dL RDW 16.1 H (11.2-14.1) % Plt Count 293 (150-350) K/uL Neut % (Auto) 68.3 (45.0-80.0) % Lymph % (Auto) 22.5 (10.0-50.0) % Garrett % (Auto) 6.2 (2.0-14.0) % Eos % (Auto) 2.4 (0.0-5.0) % Baso % (Auto) 0.6 (0.0-2.0) % Neut # (Auto) 5.80 (1.40-7.00) K/uL Lymph # (Auto) 1.91 (0.50-3.50) K/uL Garrett # (Auto) 0.53 (0.00-1.00) K/uL Eos # (Auto) 0.20 (0.00-0.50) K/uL Baso # (Auto) 0.05 (0.00-0.20) K/uL PT 9.7 (9.5-12.0) SEC INR 1.0 APTT 21.9 L (24.5-32.8) SEC Sodium 132 L (136-145) mmol/L Potassium 3.7 (3.5-5.1) mmol/L Chloride 99 (98-107) mmol/L Carbon Dioxide 26.6 (21.0-32.0) mmol/L BUN 12 (7-18) mg/dL Creatinine 0.70 (0.51-1.17) mg/dL Est Cr Clr Drug Dosing 72.01 mL/min Estimated GFR (MDRD) > 60 mL/min Glucose 104 (74-106) mg/dL Lactic Acid (0.4-2.0) mmol/L Calcium 9.6 (8.5-10.1) mg/dL Magnesium 2.0 (1.8-2.4) mg/dL Total Bilirubin 0.6 (0.2-1.0) mg/dL AST 21 (15-37) U/L ALT 45 (12-78) U/L Alkaline Phosphatase 97 (46-116) IU/L Creatine Kinase 68 (26-308) U/L Creatine Kinase Index 1.9 (0.0-2.5) % CK-MB (CK-2) 1.30 (0.00-3.60) ng/mL Troponin I 0.000 (0.000-0.056) ng/mL NT-Pro-B Natriuret Pep 32 (0-125) pg/mL Total Protein 7.9 (6.4-8.2) g/dL Albumin 4.1 (3.4-5.0) g/dL TSH, Ultra Sensitive 1.340 (0.358-3.740) mIU/mL 03/07/20 Range/Units 15:55 WBC (4.0-10.2) K/uL RBC (3.77-5.09) M/uL Hgb (11.7-15.5) g/dL Hct (34.0-46.0) % MCV (84.0-98.0) fL MCH (28.2-33.3) pg MCHC (31.7-36.0) g/dL RDW (11.2-14.1) % Plt Count (150-350) K/uL Neut % (Auto) (45.0-80.0) % Lymph % (Auto) (10.0-50.0) % Garrett % (Auto) (2.0-14.0) % Eos % (Auto) (0.0-5.0) % Baso % (Auto) (0.0-2.0) % Neut # (Auto) (1.40-7.00) K/uL Lymph # (Auto) (0.50-3.50) K/uL Garrett # (Auto) (0.00-1.00) K/uL Eos # (Auto) (0.00-0.50) K/uL Baso # (Auto) (0.00-0.20) K/uL PT (9.5-12.0) SEC INR APTT (24.5-32.8) SEC Sodium (136-145) mmol/L Potassium (3.5-5.1) mmol/L Chloride (98-107) mmol/L Carbon Dioxide (21.0-32.0) mmol/L BUN (7-18) mg/dL Creatinine (0.51-1.17) mg/dL Est Cr Clr Drug Dosing mL/min Estimated GFR (MDRD) mL/min Glucose (74-106) mg/dL Lactic Acid 1.3 (0.4-2.0) mmol/L Calcium (8.5-10.1) mg/dL Magnesium (1.8-2.4) mg/dL Total Bilirubin (0.2-1.0) mg/dL AST (15-37) U/L ALT (12-78) U/L Alkaline Phosphatase (46-116) IU/L Creatine Kinase (26-308) U/L Creatine Kinase Index (0.0-2.5) % CK-MB (CK-2) (0.00-3.60) ng/mL Troponin I (0.000-0.056) ng/mL NT-Pro-B Natriuret Pep (0-125) pg/mL Total Protein (6.4-8.2) g/dL Albumin (3.4-5.0) g/dL TSH, Ultra Sensitive (0.358-3.740) mIU/mL Meds: Medications Generic Name Dose Route Start Last Admin Trade Name Freq PRN Reason Stop Dose Admin Sodium Chloride 10 ml 03/07/20 15:51 Saline Flush FLUSH ASDIRECTED PRN Keep Vein Open Discontinued Medications Generic Name Dose Route Start Last Admin Trade Name Freq PRN Reason Stop Dose Admin Nitroglycerin 0.4 mg 03/07/20 16:02 03/07/20 16:06 Nitrostat SL 03/07/20 16:03 0.4 mg ONETIME ONE Administration - Radiology Interpretation Free Text/Narrative:: Chest xray unremarkable - Re-Assessments/Exams Free Text/Narrative Re-Assessment/Exam: 03/07/20 17:48 Nonfocal exam. Normal EKG/Chest xray/proBNP/Troponin/Mg/CBC/Chem/CKMB/Lactic/TSH Patient did report chest tightness improved "a little" after single Nitro SL Give recent GI issues, history of GERD, steadiness of chest tightness complaint over last 5 days, etiology may be due to GI cause. Cannot rule out cardiac etiology entirely however. Both are potentially improved with Nitro. Viral infection also within differential given fatigue and headache. Patient also tested for Covid but that will not be available for several days. Pending DDImer test that was sent to [place] for processing due to lab issues locally. Plan is to admit observation/telemetry/serial troponin measurements at this time. Will also check for HPylorie/stool culture given patient's GI issues. Departure - Departure Time of Disposition: 17:54 Disposition: Refer to Observation Condition: Good Clinical Impression: Chest tightness - Discharge Information *PRESCRIPTION DRUG MONITORING PROGRAM REVIEWED*: Not Applicable *COPY OF PRESCRIPTION DRUG MONITORING REPORT IN PATIENT [place]: Not Applicable Referrals: Anastacia Mercado NP [Primary Care Provider] - Sepsis Event Note (ED) - Evaluation Sepsis Screening Result: No Definite Risk - Focused Exam Vital Signs: Vital Signs Temp Pulse Resp BP BP Pulse Ox 03/07/20 16:53 71 18 115/57 L 95 03/07/20 16:37 84 20 120/82 95 03/07/20 16:27 36.2 C 89 19 142/84 H 97 03/07/20 16:06 150/77 H 03/07/20 15:51 36.6 C 79 16 155/68 H 96 - Problem List & Annotations (1) Chest tightness SNOMED Code(s): 06365284 Code(s): R07.89 - OTHER CHEST PAIN Status: Acute Priority: High Current Visit: Yes Annotation/Comment:: Constant chest tightness for 5 days, improved when sitting up. Mild improvement with Nitro. Negative cardiac workup in ER. Also complains of headache/fatigue along with intermittent bouts of loose stools. Differential includes cardiac vs GI vs infectious etiology. DDimer pending/sent to [facility] to be run. CTA planned if elevated. Admit observation/telemetry/serial troponin. No history of previous [place]. (2) Diarrhea SNOMED Code(s): 71599830 Code(s): R19.7 - DIARRHEA, UNSPECIFIED Status: Acute Priority: Medium Current Visit: Yes Annotation/Comment:: Intermittent bouts of severe loose stools this past summer. Last episode was last /. Stool culture/O&P if stool produced. Qualifiers: Diarrhea type: unspecified type Qualified Code(s): R19.7 - Diarrhea, unspecified (3) Peptic reflux disease SNOMED Code(s): 791057076 Code(s): K21.9 - GASTRO-ESOPHAGEAL REFLUX DISEASE WITHOUT ESOPHAGITIS Status: Chronic Priority: Medium Current Visit: No Annotation/Comment:: Cannot rule out reflux as potential contributor to chest discomfort. IV Protonix ordered. Observe. H.Pylorie testing ordered. (4) Hypertension SNOMED Code(s): 09758416 Code(s): I10 - ESSENTIAL (PRIMARY) HYPERTENSION Status: Chronic Priority: Low Current Visit: No Annotation/Comment:: Has been stable. Observe trends. Qualifiers: Hypertension type: essential hypertension Qualified Code(s): I10 - Essential (primary) hypertension (5) Anxiety and depression SNOMED Code(s): 859556788 Code(s): F41.9 - ANXIETY DISORDER, UNSPECIFIED; F32.9 - MAJOR DEPRESSIVE DISORDER, SINGLE EPISODE, UNSPECIFIED Status: Chronic Priority: Low Current Visit: No Annotation/Comment:: Has been stable per patient (6) IDDM (insulin dependent diabetes mellitus) SNOMED Code(s): 88716613 Code(s): E11.9 - TYPE 2 DIABETES MELLITUS WITHOUT COMPLICATIONS; Z79.4 - CARE HOME (CURRENT) USE OF INSULIN Status: Chronic Priority: Low Current Visit: No Annotation/Comment:: Observe trends (7) Hyperlipidemia SNOMED Code(s): 18639695 Code(s): E78.5 - HYPERLIPIDEMIA, UNSPECIFIED Status: Chronic Priority: Low Current Visit: No Annotation/Comment:: Currently under therapy. Qualifiers: Hyperlipidemia type: other hyperlipidemia Qualified Code(s): E78.49 - Other hyperlipidemia; E78.4 - Other hyperlipidemia - Problem List Review Problem List Initiated/Reviewed/Updated: Yes - My Orders Last 24 Hours: My Active Orders 03/07/20 15:51 Cardiac Monitoring [RC] . DIRECTED EKG Documentation Completion [RC] ASDIRECTED Peripheral IV Care [RC] . DIRECTED Sodium Chloride 0.9% [Saline Flush] 10 ml FLUSH ASDIRECTED PRN Peripheral IV Insertion Adult [OM.PC] Routine 03/07/20 15:53 Chest 2V [CR] Stat 03/07/20 16:18 D-DIMER QUANTITATIVE [COAG] Stat 03/07/20 16:19 CORONAVIRUS COVID-19 PCR PHL Routine - Assessment/Plan Admission H&P: Please use this note as an admission H&P Last 24 Hours: My Active Orders 03/07/20 15:51 Cardiac Monitoring [RC] . DIRECTED EKG Documentation Completion [RC] ASDIRECTED Peripheral IV Care [RC] . DIRECTED Sodium Chloride 0.9% [Saline Flush] 10 ml FLUSH ASDIRECTED PRN Peripheral IV Insertion Adult [OM.PC] Routine 03/07/20 15:53 Chest 2V [CR] Stat 03/07/20 16:18 D-DIMER QUANTITATIVE [COAG] Stat 03/07/20 16:19 CORONAVIRUS COVID-19 PCR PHL Routine Assessment:: as above. Patient stable and suitable for general supervision. Plan: as above. Anticipate discharge tomorrow if workup is unremarkable with follow up by patient's primary provider. to assume care in AM
[2020-03-07] MEDS ORDERED: Ondansetron 4 MG/2 ML SDV IVPUSH PRN (18:08)
[2020-03-07] MEDS ORDERED: Acetaminophen 325 MG Tab PO PRN (18:08)
[2020-03-07] MEDS ORDERED: Nitroglycerin 0.4 MG Tab.SL SL PRN (18:18)
[2020-03-07] MEDS ORDERED: Aspirin 81 MG Tab.Chew PO ONE (18:30)
[2020-03-07] MEDS ORDERED: Pantoprazole 40 MG in Sodium Chloride 0.9% 100 ML IV ONE ×2 (18:30→19:30)
[2020-03-07] MEDS ORDERED: Albuterol HFA 8.5 GM Inhaler INH PRN (18:40)
[2020-03-07] MEDS ORDERED: Iopamidol 755 Mg/ML 100 ML Bottle IVPUSH STA (18:55)
[2020-03-07] MEDS ORDERED: Pantoprazole 40 MG Vial IV ONE (19:30)
[2020-03-07] MEDS ORDERED: LISINOPRIL 10 MG PO SCH ×2 (20:00→21:00)
[2020-03-07] MEDS ORDERED: atorvaSTATin 10 MG Tab PO SCH (20:00)
[2020-03-07] MEDS ORDERED: Insulin Glarg,Human.Rec.Analog 100 Unit/ML SUBCUT SCH (20:00)
[2020-03-07] MEDS ORDERED: ATORVASTATIN 10 MG PO SCH (21:00)
[2020-03-07] MEDS ORDERED: metFORMIN 500 MG Tab #OWN MED# PO SCH (21:00)
[2020-03-07] MEDS ORDERED: SERTRALINE 25 MG PO SCH (21:00)
[2020-03-07] MEDS ORDERED: LIRAGLUTIDE 1.8 MG SQ SCH (21:00)
[2020-03-07] MEDS ORDERED: INSULIN DETEMIR SUBCUT ONE (21:15)
[2020-03-07] MEDS ORDERED: ATORVASTATIN 20 MG PO SCH ×2 (22:00)
[2020-03-07] MEDS: METFORMIN 1000 MG PO SCH (22:09)
--- NOTE | 2020-03-08 03:13 | PCM.SN.2 ---
- Free Text/Narrative Note: DDimer minimally elevated. Discussed with patient. She elected to have the CTA to rule out PE. This was read as negative for PE by Radiology. Second Troponin at 2200 within normal limits.
[2020-03-08] MEDS: METFORMIN 1000 MG PO SCH (07:44)
[2020-03-08] MEDS ORDERED: Sertraline 25 MG Tab PO SCH (08:00)
[2020-03-08] MEDS ORDERED: Aspirin 81 MG Tab.Chew PO SCH (08:00)
[2020-03-08] MEDS ORDERED: ASPIRIN 81 MG PO SCH (08:00)
[2020-03-08] MEDS ORDERED: carBAMazepine 100 MG Cap.ER PO SCH (08:00)
[2020-03-08] MEDS ORDERED: metFORMIN 500 MG Tab PO SCH (08:00)
[2020-03-08] MEDS ORDERED: Lisinopril 10 MG Tab PO SCH (08:00)
[2020-03-08] MEDS ORDERED: Magnesium Oxide 400 MG Tab PO SCH (08:00)
[2020-03-08 09:10] LABS: CHLORIDE,CL 103 mmol/L (98-107); SODIUM,NA 138 mmol/L (136-145)
--- NOTE | 2020-03-08 10:21 | PCM.DCSUM1 ---
Discharge Summary - Hospital Course HPI Initial Comments: See emergency room note/admission H&P Brief History: See emergency room note/admission H&P Diagnosis: Stroke: No Modified Lawrence Scale: No Symptoms at All Modified Lawrence Scale Score: 0 - Discharge Data Discharge Date: 03/08/20 Discharge Disposition: Home, Self-Care 01 Condition: Good - Referral to Home Health Primary Care Physician: Anastacia Mercado NP - Discharge Diagnosis/Problem(s) (1) Chest tightness SNOMED Code(s): 92960487 ICD Code: R07.89 - OTHER CHEST PAIN Status: Acute Priority: High Current Visit: Yes Problem Details: Negative work-up for acute [place] during this hospitalization with no return of her chest pain after 1 sublingual ni troglycerin in the emergency room. Note multiple cardiac risk factors, including IDDM, hypertension, distant tobacco use, hyperlipidemia, and family history. In addition, note evidence of coronary artery calcifications particularly in the LAD distribution per CTA of the chest on 03/07/2020. Patient did smoke between ages 14 and 50 with maximum use of 1/2 pack/day and no current secondhand tobacco smoke exposure. Father with initial KY in his early 60s with [place] and required three-vessel CABG. Maternal grandmother with fatal CHF at age 80 with previous MIs x2. Maternal aunt with unknown type of valve replacement. Paternal uncle with fatal KY at age 50 with no procedures. Patient will be placed on a 50% maximum exercise restriction with Cardiolite stress test to be performed by me in this facility on 03/09 with follow-up with her regular provider in about 1 week as per discharge instructions. Note that the patient had previous constant chest tightness for 5 days, improved when sitting up. Note occasional persistent OTC Tums use. Patient also complained of nonspecific headache/fatigue along with intermittent bouts of loose stools. Differential, included cardiac vs GI vs infectious etiology. D-Dimer pending/sent to [facility] to be run as below. No history of previous [place] with distant apparent negative Cardiolite stress test by her history. (2) D-dimer, elevated SNOMED Code(s): 203478877 ICD Code: R79.89 - OTHER SPECIFIED ABNORMAL FINDINGS OF BLOOD CHEMISTRY Status: Acute Priority: High Current Visit: Yes Onset Date: 03/08/20 Problem Details: D-dimer evaluation was sent to [facility] for evaluation with only minimal elevation of 406 with high normal of less than 400. No clinical evidence of DVT or PE. Consider venous Doppler studies of lower extremities if d-dimer elevation persists at follow-up. Note negative CTA of the chest for PE on 03/07/2020. (3) Peptic reflux disease SNOMED Code(s): 919625178 ICD Code: K21.9 - GASTRO-ESOPHAGEAL REFLUX DISEASE WITHOUT ESOPHAGITIS Status: Chronic Priority: Medium Current Visit: Yes Problem Details: Note small hiatal hernia as incidental finding at time a CTA of the chest on 03/07/20. Persistent occasional OTC Tums use as above. Consider further GI work-up including EGD, etc. depending on her clinical course. Otherwise continue current medical therapy. Stool specimen has been collected for H. pylori antigen with results pending. (4) Anemia SNOMED Code(s): 783042988 ICD Code: D64.9 - ANEMIA, UNSPECIFIED Status: Acute Priority: Medium Current Visit: Yes Onset Date: 03/08/20 Problem Details: Mild anemia today with no evidence of abdominal complaints, acute GI bleed, etc.. Consider further work-up, including TIBC panel, ferritin level, and vitamin B12 level, if anemia persists at 1 week follow-up as per discharge instructions. Qualifiers: Anemia type: unspecified type Qualified Code(s): D64.9 - Anemia, unspecified (5) Hypomagnesemia SNOMED Code(s): 834277710 ICD Code: E83.42 - HYPOMAGNESEMIA Status: Chronic Priority: Medium Current Visit: Yes Onset Date: 11/02/18 Problem Details: Continue current medical therapy. Magnesium level normal during this hospitalization. (6) Anxiety and depression SNOMED Code(s): 790896106 ICD Code: F41.9 - ANXIETY DISORDER, UNSPECIFIED; F32.9 - MAJOR DEPRESSIVE DISORDER, SINGLE EPISODE, UNSPECIFIED Status: Chronic Priority: Medium Current Visit: Yes Problem Details: Has been stable per patient. (7) Hyperlipidemia SNOMED Code(s): 60702750 ICD Code: E78.5 - HYPERLIPIDEMIA, UNSPECIFIED Status: Chronic Priority: Medium Current Visit: Yes Problem Details: Currently under therapy with fasting lipid panel to be conducted by her regular provider at 1 week follow-up as per discharge instructions. Qualifiers: Hyperlipidemia type: other hyperlipidemia Qualified Code(s): E78.49 - Other hyperlipidemia; E78.4 - Other hyperlipidemia (8) Hypertension SNOMED Code(s): 67846827 ICD Code: I10 - ESSENTIAL (PRIMARY) HYPERTENSION Status: Chronic Priority: Medium Current Visit: Yes Problem Details: Blood pressures were stable during this hospitalization and also by patient history. Continue to observe closely by her regular provider. Qualifiers: Hypertension type: essential hypertension Qualified Code(s): I10 - Essential (primary) hypertension (9) IDDM (insulin dependent diabetes mellitus) SNOMED Code(s): 56631612 ICD Code: E11.9 - TYPE 2 DIABETES MELLITUS WITHOUT COMPLICATIONS; Z79.4 - [facility] (CURRENT) USE OF INSULIN Status: Chronic Priority: Medium Current Visit: Yes Problem Details: Continue current medical therapy. Home Accu-Cheks have been averaging in the 150s in the a.m. and 120s in the p.m. by patient history. Glycosylated hemoglobin to be performed follow-up as per dis charge instructions. (10) Hyponatremia SNOMED Code(s): 43755444 ICD Code: E87.1 - HYPO-OSMOLALITY AND HYPONATREMIA Status: Acute Priority: Medium Current Visit: Yes Onset Date: 03/07/20 Problem Details: Resolved on 03/08/2020. No clinical evidence of CHF. - Patient Summary/Data Operative Procedure(s) Performed: None Complications: None Consults: None Labs Pending at D/C: H. pylori antigen in stool specimen Recommended Follow-up Testing/Procedures: As per discharge instructions Planned Operative Procedure(s) after DC: None Hospital Course: The patient was placed in observation status on telemetry with initiation of standard rule out [place] orders with negative work-up as above. Secondary to multiple cardiac risk factors close observation of her cardiac status, including activity restrictions, Cardiolite stress test in this facility, etc. as above. Note no further complications during this hospitalization with no return of chest pain or anginal type symptoms during this hospitalization. - Patient Instructions Diet: Heart Healthy Diet Diet, Other: 1800-calorie ADA, diverticulosis Activity: No Strenuous Activities (50% maximum exercise restriction until released by regular provider and after your heart status has been determined) Driving: May Drive Today Showering/Bathing: May Shower Other/Special Instructions: 1. Follow-up in this facility tomorrow for Cardiolite stress test as scheduled and directed. 2. Follow-up with your regular provider in 7-8 days for reevaluation, CBC, d-dimer, glycosylated hemoglobin, and fasting lipid profile, i.e., fasting for about 12 hours. Consider TIBC panel, ferritin level, and vitamin B12 level at the above follow- up visit, if anemia still persists. 3. Consider further evaluation, including EGD, etc. depending on your clinical course. 4. Bring your home blood sugar records to each doctor's appointment. 5. Consider venous Doppler studies of your legs bilaterally, if mild d-dimer elevation progresses. 6. Immediately after this visit verify that your cellular telephone's voicemail has been activated and is empty. Also verify that your home telephone's answering machine is operating properly and has space to receive messages. Note that it is sometimes necessary for us to be able to contact you at a later date to discuss your medical care. 7. Please remember that we are ALWAYS here for you and want to answer any questions you may have. Feel free to call the hospital any time and we call you back PHILLIP. - Discharge Plan *PRESCRIPTION DRUG MONITORING PROGRAM REVIEWED*: Not Applicable *COPY OF PRESCRIPTION DRUG MONITORING REPORT IN PATIENT [place]: Not Applicable Home Medications: Home Meds Lansoprazole [Prevacid] 30 mg PO DAILY 11/01/18 [History] metFORMIN HCl [Glucophage] 1,000 mg PO 11/01/18 [History] Acetaminophen [Tylenol] 650 mg PO Q4H PRN tablet 11/02/18 [Rx] Liraglutide [Victoza] 1.8 mg SQ BEDTIME 11/02/18 [History] Magnesium Oxide 400 mg PO DAILY #20 tab 11/02/18 [Rx] atorvaSTATin Calcium [Lipitor] 20 mg PO BEDTIME 11/02/18 [History] Aspirin [Aspirin EC] 81 mg PO DAILY 03/07/20 [History] Insulin Detemir [Levemir] 18 unit SUBCUT BEDTIME 03/07/20 [History] Lisinopril 10 mg PO BEDTIME 03/07/20 [History] Non-Formulary Medication [NF Drug] 1 ea PO DAILY 03/07/20 [History] Sertraline [Zoloft] 25 mg PO BEDTIME 03/07/20 [History] Aspirin 81 mg PO DAILY tab.chew 03/08/20 [Rx] Oxygen Therapy Mode: Room Air Patient Handouts: Nonspecific Chest Pain, Adult Forms: ED Department Discharge Referrals: Anastacia Mercado [employer] REVIEWER [Primary Care Provider] - - Discharge Summary/Plan Comment DC Time >30 min.: Yes (Coordination of care ) Discharge Summary/Plan Comment: As above. Extensive precautions were given to the patient, who is in agreement with the treatment plan. See Patient Instructions for further treatment and plan. - General Info Date of Service: 03/08/20 Admission Dx/Problem (Free Text: 1. Chest pain 2. GERD Functional Status: Reports: Pain Controlled, Tolerating Diet, Ambulating, Urinating. Denies: New Symptoms, Incentive Spirometry Numeric/FACES Score: 0 - Review of Systems General: Reports: No Symptoms. Denies: Fever, Weakness, Fatigue, Malaise, Night Sweats, Appetite HEENT: Reports: Glasses. Denies: Dysphasia, Ear Pain, Eye Pain, Headaches, Sinus Congestion, Sore Throat, Rhinitis, Visual Changes Pulmonary: Reports: No Symptoms. Denies: Shortness of Breath, Pleuritic Chest Pain, Cough, Sputum, Hemoptysis, Wheezing Cardiovascular: Reports: No Symptoms. Denies: Chest Pain, Palpitations, Dyspnea on Exertion, Orthopnea, PND, Edema, Lightheadedness Gastrointestinal: Reports: No Symptoms. Denies: Abdominal Pain, Constipation, Diarrhea, Difficulty Swallowing, Hematochezia, Melena, Nausea, Vomiting Genitourinary: Reports: No Symptoms. Denies: Dysuria, Frequency, Burning, Pain, Urgency, Hematuria, Retention, Flank Pain Skin: Reports: No Symptoms. Denies: Diaphoresis Neurological: Reports: No Symptoms. Denies: Confusion, Dizziness, Numbness, Paresthesia, Seizure, Syncope, Weakness Psychiatric: Reports: No Symptoms. Denies: Confusion, Depression, Anxiety, Agitation, Hallucinations - Patient Data Vitals - Most Recent: Last Vital Signs Temp 36.2 C 03/08/20 08:00 Pulse 61 03/08/20 08:00 Resp 20 03/08/20 08:00 BP 121/64 03/08/20 08:00 Pulse Ox 97 03/08/20 08:00 Vital Signs - 24 hr 03/07/20 03/07/20 03/07/20 15:51 16:06 16:27 Temperature [ 36.6 C 36.2 C Temporal] Pulse, 79 89 Peripheral [ Right Pulse Oximetry] Respiratory 16 19 Rate Blood Pressure 150/77 H Blood Pressure 155/68 H 142/84 H [Right Upper Arm] O2 Sat by Pulse 96 97 Oximetry O2 Sat by Pulse Oximetry [Room Air] 03/07/20 03/07/20 03/07/20 16:37 16:53 17:18 Temperature [ Temporal] Pulse, 84 71 65 Peripheral [ Right Pulse Oximetry] Respiratory 20 18 18 Rate Blood Pressure Blood Pressure 120/82 115/57 L 112/59 L [Right Upper Arm] O2 Sat by Pulse 95 95 95 Oximetry O2 Sat by Pulse Oximetry [Room Air] 03/07/20 03/07/20 03/07/20 17:45 18:08 18:13 Temperature [ 36.4 C Temporal] Pulse, 83 Peripheral [ Right Pulse Oximetry] Respiratory 20 Rate Blood Pressure Blood Pressure 115/62 [Right Upper Arm] O2 Sat by Pulse 95 96 Oximetry O2 Sat by Pulse 96 Oximetry [Room Air] 03/07/20 03/07/20 03/07/20 19:42 22:08 22:18 Temperature [ 36.9 C Temporal] Pulse, 71 Peripheral [ Right Pulse Oximetry] Respiratory 14 Rate Blood Pressure 120/78 128/70 Blood Pressure 128/70 [Right Upper Arm] O2 Sat by Pulse 100 Oximetry O2 Sat by Pulse Oximetry [Room Air] 03/08/20 03/08/20 00:00 08:00 Temperature [ 36.9 C 36.2 C Temporal] Pulse, 71 61 Peripheral [ Right Pulse Oximetry] Respiratory 12 20 Rate Blood Pressure Blood Pressure 127/93 H 121/64 [Right Upper Arm] O2 Sat by Pulse 100 97 Oximetry O2 Sat by Pulse Oximetry [Room Air] Weight - Most Recent: 89.811 kg I&O - Last 24 hours: Intake & Output 03/07/20 03/08/20 03/08/20 22:59 06:59 14:59 Intake Total 300 480 Output Total 250 Balance 50 480 Imaging Impressions - Last 24 hrs: locks tender shows normal sinus rhythm in the 60s with no ectopy or arrhythmia Chest x-ray, PA and lateral, on 03/07/2020 was normal with no cardiomegaly, CHF, pulmonary infiltrates, etc. CTA of the chest on 03/07/2020 showed no evidence of PE. Note incidental findings of coronary artery calcifications in the LAD distribution with additional mild right adrenal gland enlargement with fatty deposits and a small hiatal hernia Lab Results - Last 24 hrs: Laboratory Results - last 24 hr 03/07/20 03/07/20 03/07/20 Range/Units 15:55 15:55 15:55 WBC 8.5 (4.0-10.2) K/uL RBC 4.30 (3.77-5.09) M/uL Hgb 12.1 (11.7-15.5) g/dL Hct 37.3 (34.0-46.0) % MCV 86.7 D (84.0-98.0) fL MCH 28.1 L (28.2-33.3) pg MCHC 32.4 (31.7-36.0) g/dL RDW 16.1 H (11.2-14.1) % Plt Count 293 (150-350) K/uL Neut % (Auto) 68.3 (45.0-80.0) % Lymph % (Auto) 22.5 (10.0-50.0) % [place] % (Auto) 6.2 (2.0-14.0) % Eos % (Auto) 2.4 (0.0-5.0) % Baso % (Auto) 0.6 (0.0-2.0) % Neut # (Auto) 5.80 (1.40-7.00) K/uL Lymph # (Auto) 1.91 (0.50-3.50) K/uL [place] # (Auto) 0.53 (0.00-1.00) K/uL Eos # (Auto) 0.20 (0.00-0.50) K/uL Baso # (Auto) 0.05 (0.00-0.20) K/uL PT 9.7 (9.5-12.0) SEC INR 1.0 APTT 21.9 L (24.5-32.8) SEC Sodium 132 L (136-145) mmol/L Potassium 3.7 (3.5-5.1) mmol/L Chloride 99 (98-107) mmol/L Carbon Dioxide 26.6 (21.0-32.0) mmol/L BUN 12 (7-18) mg/dL Creatinine 0.70 (0.51-1.17) mg/dL Est Cr Clr Drug Dosing 72.01 mL/min Estimated GFR (MDRD) > 60 mL/min Glucose 104 (74-106) mg/dL POC Glucose (65-110) mg/dl Lactic Acid (0.4-2.0) mmol/L Calcium 9.6 (8.5-10.1) mg/dL Magnesium 2.0 (1.8-2.4) mg/dL Total Bilirubin 0.6 (0.2-1.0) mg/dL AST 21 (15-37) U/L ALT 45 (12-78) U/L Alkaline Phosphatase 97 (46-116) IU/L Creatine Kinase 68 (26-308) U/L Creatine Kinase Index 1.9 (0.0-2.5) % CK-MB (CK-2) 1.30 (0.00-3.60) ng/mL Troponin I 0.000 (0.000-0.056) ng/mL NT-Pro-B Natriuret Pep 32 (0-125) pg/mL Total Protein 7.9 (6.4-8.2) g/dL Albumin 4.1 (3.4-5.0) g/dL TSH, Ultra Sensitive 1.340 (0.358-3.740) mIU/mL 03/07/20 03/07/20 03/07/20 Range/Units 15:55 19:30 21:38 WBC (4.0-10.2) K/uL RBC (3.77-5.09) M/uL Hgb (11.7-15.5) g/dL Hct (34.0-46.0) % MCV (84.0-98.0) fL MCH (28.2-33.3) pg MCHC (31.7-36.0) g/dL RDW (11.2-14.1) % Plt Count (150-350) K/uL Neut % (Auto) (45.0-80.0) % Lymph % (Auto) (10.0-50.0) % [place] % (Auto) (2.0-14.0) % Eos % (Auto) (0.0-5.0) % Baso % (Auto) (0.0-2.0) % Neut # (Auto) (1.40-7.00) K/uL Lymph # (Auto) (0.50-3.50) K/uL [place] # (Auto) (0.00-1.00) K/uL Eos # (Auto) (0.00-0.50) K/uL Baso # (Auto) (0.00-0.20) K/uL PT (9.5-12.0) SEC INR APTT (24.5-32.8) SEC Sodium (136-145) mmol/L Potassium (3.5-5.1) mmol/L Chloride (98-107) mmol/L Carbon Dioxide (21.0-32.0) mmol/L BUN (7-18) mg/dL Creatinine (0.51-1.17) mg/dL Est Cr Clr Drug Dosing mL/min Estimated GFR (MDRD) mL/min Glucose (74-106) mg/dL POC Glucose 190 H (65-110) mg/dl Lactic Acid 1.3 (0.4-2.0) mmol/L Calcium (8.5-10.1) mg/dL Magnesium (1.8-2.4) mg/dL Total Bilirubin (0.2-1.0) mg/dL AST (15-37) U/L ALT (12-78) U/L Alkaline Phosphatase (46-116) IU/L Creatine Kinase (26-308) U/L Creatine Kinase Index (0.0-2.5) % CK-MB (CK-2) (0.00-3.60) ng/mL Troponin I 0.000 (0.000-0.056) ng/mL NT-Pro-B Natriuret Pep (0-125) pg/mL Total Protein (6.4-8.2) g/dL Albumin (3.4-5.0) g/dL TSH, Ultra Sensitive (0.358-3.740) mIU/mL 03/08/20 03/08/20 03/08/20 Range/Units 07:47 08:50 08:50 WBC 8.3 (4.0-10.2) K/uL RBC 3.98 (3.77-5.09) M/uL Hgb 11.2 L (11.7-15.5) g/dL Hct 35.1 (34.0-46.0) % MCV 88.2 (84.0-98.0) fL MCH 28.1 L (28.2-33.3) pg MCHC 31.9 (31.7-36.0) g/dL RDW 16.3 H (11.2-14.1) % Plt Count 276 (150-350) K/uL Neut % (Auto) 67.2 (45.0-80.0) % Lymph % (Auto) 21.4 (10.0-50.0) % [place] % (Auto) 7.3 (2.0-14.0) % Eos % (Auto) 3.3 (0.0-5.0) % Baso % (Auto) 0.8 (0.0-2.0) % Neut # (Auto) 5.57 (1.40-7.00) K/uL Lymph # (Auto) 1.78 (0.50-3.50) K/uL [place] # (Auto) 0.61 (0.00-1.00) K/uL Eos # (Auto) 0.27 (0.00-0.50) K/uL Baso # (Auto) 0.07 (0.00-0.20) K/uL PT (9.5-12.0) SEC INR APTT (24.5-32.8) SEC Sodium 138 (136-145) mmol/L Potassium 4.6 (3.5-5.1) mmol/L Chloride 103 (98-107) mmol/L Carbon Dioxide 23.4 (21.0-32.0) mmol/L BUN 15 (7-18) mg/dL Creatinine 0.67 (0.51-1.17) mg/dL Est Cr Clr Drug Dosing 75.23 mL/min Estimated GFR (MDRD) > 60 mL/min Glucose 189 H (74-106) mg/dL POC Glucose 157 H (65-110) mg/dl Lactic Acid (0.4-2.0) mmol/L Calcium 9.2 (8.5-10.1) mg/dL Magnesium (1.8-2.4) mg/dL Total Bilirubin (0.2-1.0) mg/dL AST (15-37) U/L ALT (12-78) U/L Alkaline Phosphatase (46-116) IU/L Creatine Kinase (26-308) U/L Creatine Kinase Index (0.0-2.5) % CK-MB (CK-2) (0.00-3.60) ng/mL Troponin I 0.000 (0.000-0.056) ng/mL NT-Pro-B Natriuret Pep (0-125) pg/mL Total Protein (6.4-8.2) g/dL Albumin (3.4-5.0) g/dL TSH, Ultra Sensitive (0.358-3.740) mIU/mL Laboratory Tests 03/07/20 03/07/20 03/07/20 Range/Units 15:55 15:55 15:55 WBC 8.5 (4.0-10.2) K/uL RBC 4.30 (3.77-5.09) M/uL Hgb 12.1 (11.7-15.5) g/dL Hct 37.3 (34.0-46.0) % MCV 86.7 D (84.0-98.0) fL MCH 28.1 L (28.2-33.3) pg MCHC 32.4 (31.7-36.0) g/dL RDW 16.1 H (11.2-14.1) % Plt Count 293 (150-350) K/uL Neut % (Auto) 68.3 (45.0-80.0) % Lymph % (Auto) 22.5 (10.0-50.0) % [place] % (Auto) 6.2 (2.0-14.0) % Eos % (Auto) 2.4 (0.0-5.0) % Baso % (Auto) 0.6 (0.0-2.0) % Neut # (Auto) 5.80 (1.40-7.00) K/uL Lymph # (Auto) 1.91 (0.50-3.50) K/uL [place] # (Auto) 0.53 (0.00-1.00) K/uL Eos # (Auto) 0.20 (0.00-0.50) K/uL Baso # (Auto) 0.05 (0.00-0.20) K/uL PT 9.7 (9.5-12.0) SEC INR 1.0 APTT 21.9 L (24.5-32.8) SEC Sodium 132 L (136-145) mmol/L Potassium 3.7 (3.5-5.1) mmol/L Chloride 99 (98-107) mmol/L Carbon Dioxide 26.6 (21.0-32.0) mmol/L BUN 12 (7-18) mg/dL Creatinine 0.70 (0.51-1.17) mg/dL Est Cr Clr Drug Dosing 72.01 mL/min Estimated GFR (MDRD) > 60 mL/min Glucose 104 (74-106) mg/dL POC Glucose (65-110) mg/dl Lactic Acid (0.4-2.0) mmol/L Calcium 9.6 (8.5-10.1) mg/dL Magnesium 2.0 (1.8-2.4) mg/dL Total Bilirubin 0.6 (0.2-1.0) mg/dL AST 21 (15-37) U/L ALT 45 (12-78) U/L Alkaline Phosphatase 97 (46-116) IU/L Creatine Kinase 68 (26-308) U/L Creatine Kinase Index 1.9 (0.0-2.5) % CK-MB (CK-2) 1.30 (0.00-3.60) ng/mL Troponin I 0.000 (0.000-0.056) ng/mL NT-Pro-B Natriuret Pep 32 (0-125) pg/mL Total Protein 7.9 (6.4-8.2) g/dL Albumin 4.1 (3.4-5.0) g/dL TSH, Ultra Sensitive 1.340 (0.358-3.740) mIU/mL 03/07/20 03/07/20 03/07/20 Range/Units 15:55 19:30 21:38 WBC (4.0-10.2) K/uL RBC (3.77-5.09) M/uL Hgb (11.7-15.5) g/dL Hct (34.0-46.0) % MCV (84.0-98.0) fL MCH (28.2-33.3) pg MCHC (31.7-36.0) g/dL RDW (11.2-14.1) % Plt Count (150-350) K/uL Neut % (Auto) (45.0-80.0) % Lymph % (Auto) (10.0-50.0) % [place] % (Auto) (2.0-14.0) % Eos % (Auto) (0.0-5.0) % Baso % (Auto) (0.0-2.0) % Neut # (Auto) (1.40-7.00) K/uL Lymph # (Auto) (0.50-3.50) K/uL [place] # (Auto) (0.00-1.00) K/uL Eos # (Auto) (0.00-0.50) K/uL Baso # (Auto) (0.00-0.20) K/uL PT (9.5-12.0) SEC INR APTT (24.5-32.8) SEC Sodium (136-145) mmol/L Potassium (3.5-5.1) mmol/L Chloride (98-107) mmol/L Carbon Dioxide (21.0-32.0) mmol/L BUN (7-18) mg/dL Creatinine (0.51-1.17) mg/dL Est Cr Clr Drug Dosing mL/min Estimated GFR (MDRD) mL/min Glucose (74-106) mg/dL POC Glucose 190 H (65-110) mg/dl Lactic Acid 1.3 (0.4-2.0) mmol/L Calcium (8.5-10.1) mg/dL Magnesium (1.8-2.4) mg/dL Total Bilirubin (0.2-1.0) mg/dL AST (15-37) U/L ALT (12-78) U/L Alkaline Phosphatase (46-116) IU/L Creatine Kinase (26-308) U/L Creatine Kinase Index (0.0-2.5) % CK-MB (CK-2) (0.00-3.60) ng/mL Troponin I 0.000 (0.000-0.056) ng/mL NT-Pro-B Natriuret Pep (0-125) pg/mL Total Protein (6.4-8.2) g/dL Albumin (3.4-5.0) g/dL TSH, Ultra Sensitive (0.358-3.740) mIU/mL 03/08/20 03/08/20 03/08/20 Range/Units 07:47 08:50 08:50 WBC 8.3 (4.0-10.2) K/uL RBC 3.98 (3.77-5.09) M/uL Hgb 11.2 L (11.7-15.5) g/dL Hct 35.1 (34.0-46.0) % MCV 88.2 (84.0-98.0) fL MCH 28.1 L (28.2-33.3) pg MCHC 31.9 (31.7-36.0) g/dL RDW 16.3 H (11.2-14.1) % Plt Count 276 (150-350) K/uL Neut % (Auto) 67.2 (45.0-80.0) % Lymph % (Auto) 21.4 (10.0-50.0) % [place] % (Auto) 7.3 (2.0-14.0) % Eos % (Auto) 3.3 (0.0-5.0) % Baso % (Auto) 0.8 (0.0-2.0) % Neut # (Auto) 5.57 (1.40-7.00) K/uL Lymph # (Auto) 1.78 (0.50-3.50) K/uL [place] # (Auto) 0.61 (0.00-1.00) K/uL Eos # (Auto) 0.27 (0.00-0.50) K/uL Baso # (Auto) 0.07 (0.00-0.20) K/uL PT (9.5-12.0) SEC INR APTT (24.5-32.8) SEC Sodium 138 (136-145) mmol/L Potassium 4.6 (3.5-5.1) mmol/L Chloride 103 (98-107) mmol/L Carbon Dioxide 23.4 (21.0-32.0) mmol/L BUN 15 (7-18) mg/dL Creatinine 0.67 (0.51-1.17) mg/dL Est Cr Clr Drug Dosing 75.23 mL/min Estimated GFR (MDRD) > 60 mL/min Glucose 189 H (74-106) mg/dL POC Glucose 157 H (65-110) mg/dl Lactic Acid (0.4-2.0) mmol/L Calcium 9.2 (8.5-10.1) mg/dL Magnesium (1.8-2.4) mg/dL Total Bilirubin (0.2-1.0) mg/dL AST (15-37) U/L ALT (12-78) U/L Alkaline Phosphatase (46-116) IU/L Creatine Kinase (26-308) U/L Creatine Kinase Index (0.0-2.5) % CK-MB (CK-2) (0.00-3.60) ng/mL Troponin I 0.000 (0.000-0.056) ng/mL NT-Pro-B Natriuret Pep (0-125) pg/mL Total Protein (6.4-8.2) g/dL Albumin (3.4-5.0) g/dL TSH, Ultra Sensitive (0.358-3.740) mIU/mL Stool specimen collected for H. pylori antigen with results pending. [facility] Results - Last 24 hrs: None Med Orders - Current: Current Medications Acetaminophen (Tylenol) 650 mg PO Q4H PRN PRN Reason: Pain (Mild 1-3)/fever Last Admin: 03/07/20 22:15 Dose: 650 mg Documented by: Albuterol (Proair Hfa) 0 gm INH Q2H PRN PRN Reason: Chest Tightness Aspirin (Aspirin) 81 mg PO DAILY COUNT INCLUDES THE [facility] Last Admin: 03/08/20 07:44 Dose: 81 mg Documented by: Lisinopril (Prinivil) 10 mg PO BEDTIME COUNT INCLUDES THE [facility] Last Admin: 03/07/20 22:18 Dose: 10 mg Documented by: Magnesium Oxide (Magnesium Oxide) 400 mg PO DAILY COUNT INCLUDES THE [facility] Last Admin: 03/08/20 07:44 Dose: 400 mg Documented by: Nitroglycerin (Nitrostat) 0.4 mg SL Q5M PRN PRN Reason: Chest Pain Liraglutide [Victoza ] 1.8 Mg #Patient's Own# 1.8 mg SQ BEDTIME COUNT INCLUDES THE [facility] Last Admin: 03/07/20 22:09 Dose: 1.8 mg Documented by: Insulin Detemir #Own (Med#) 18 each SUBCUT BEDTIME COUNT INCLUDES THE [facility] Metformin 1000mg Tab (#Own Med#) 1,000 each PO BID@0800,2000 COUNT INCLUDES THE [facility] Last Admin: 03/08/20 07:44 Dose: 1,000 each Documented by: Atorvastatin 20mg (Tab #Own Med#) 1 each PO BEDTIME COUNT INCLUDES THE [facility] Last Admin: 03/08/20 03:01 Dose: Not Given Documented by: Ondansetron HCl (Zofran) 4 mg IVPUSH Q6H PRN PRN Reason: Nausea/Vomiting Sertraline HCl (Zoloft) 25 mg PO BEDTIME COUNT INCLUDES THE [facility] Last Admin: 03/07/20 22:07 Dose: 25 mg Documented by: Sodium Chloride (Saline Flush) 10 ml FLUSH ASDIRECTED PRN PRN Reason: Keep Vein Open Last Admin: 03/07/20 19:39 Dose: 10 ml Documented by: Discontinued Medications Aspirin (Aspirin) 81 mg PO DAILY COUNT INCLUDES THE [facility] Aspirin (Aspirin) 324 mg PO ONETIME ONE Stop: 03/07/20 18:31 Last Admin: 03/07/20 19:38 Dose: 324 mg Documented by: Atorvastatin Calcium (Lipitor) 20 mg PO BEDTIME COUNT INCLUDES THE [facility] Atorvastatin Calcium (Lipitor) 20 mg PO BEDTIME COUNT INCLUDES THE [facility] Atorvastatin Calcium (Lipitor) 20 mg PO BEDTIME COUNT INCLUDES THE [facility] Last Admin: 03/07/20 21:33 Dose: 20 mg Documented by: Pantoprazole Sodium 40 mg/ (Sodium Chloride) 100 mls @ 200 mls/hr IV ONETIME ONE Stop: 03/07/20 18:59 Last Admin: 03/07/20 19:40 Dose: Not Given Documented by: Pantoprazole Sodium 40 mg/ (Sodium Chloride) 100 mls @ 3,000 mls/hr IV ONETIME ONE Stop: 03/07/20 19:31 Insulin Glargine (Lantus) 18 unit SUBCUT BEDTIME COUNT INCLUDES THE [facility] Iopamidol (Isovue-370 (76%)) 100 ml IVPUSH ONETIME STA Stop: 03/07/20 18:56 Last Admin: 03/07/20 19:23 Dose: 100 ml Documented by: Lisinopril (Prinivil) 10 mg PO DAILY COUNT INCLUDES THE [facility] Lisinopril (Prinivil) 10 mg PO BEDTIME COUNT INCLUDES THE [facility] Last Admin: 03/07/20 22:08 Dose: 10 mg Documented by: Metformin HCl (Glucophage) 1,000 mg PO BID COUNT INCLUDES THE [facility] Metformin HCl (Glucophage) 1,000 mg PO BID COUNT INCLUDES THE [facility] Nitroglycerin (Nitrostat) 0.4 mg SL ONETIME ONE Stop: 03/07/20 16:03 Last Admin: 03/07/20 16:06 Dose: 0.4 mg Documented by: Insulin Detemir #Own (Med#) 18 each SUBCUT ONETIME ONE Stop: 03/07/20 21:16 Last Admin: 03/07/20 21:33 Dose: 18 each Documented by: Atorvastatin 20mg (Tab #Own Med#) 1 each PO BEDTIME EDMUND Atorvastatin 20mg (Tab #Own Med#) 1 each PO BEDTIME@1999 EDMUND Atorvastatin 20mg (Tab #Own Med#) 1 each PO BEDTIME@1999 EDMUND Last Admin: 03/08/20 02:52 Dose: Not Given Documented by: Pantoprazole Sodium (Protonix Iv) 40 mg IV ONETIME ONE Stop: 03/07/20 19:31 Last Admin: 03/07/20 19:38 Dose: 40 mg Documented by: Sertraline HCl (Zoloft) 25 mg PO DAILY EDMUND - Exam Quality Assessment: Reports: DVT Prophylaxis. Denies: Supplemental Oxygen, Central Line/PICC, Urine Catheter, Skin Breakdown, Restraints General: Reports: Alert, Oriented, Cooperative, No Acute Distress HEENT: Reports: Pupils Equal, Pupils Reactive, EOMI, Mucous Membr. Moist/[place]. Denies: Other (Patient is wearing glasses) Neck: Reports: Supple, Trachea Midline, No JVD, No Thyromegaly, Carotid Bruit (Mild bilateral carotid bruits). Denies: Lymphadenopathy Lungs: Reports: Clear to Auscultation, Normal Respiratory Effort. Denies: Rub Cardiovascular: Reports: Regular Rate (Okay), Regular Rhythm, No Murmurs. Denies: Gallops, Rubs GI/Abdominal Exam: Normal Bowel Sounds, Soft, Non-Tender, No Organomegaly, No Distention, No Abnormal Bruit, No Mass, Other (Obese). No: Guarding Rectal (Female) Exam: Deferred Back Exam: Reports: Full Range of Motion, Other (Mild kyphosis). Denies: CVA Tenderness (L), CVA Tenderness (R), Muscle Spasm, Paraspinal Tenderness, Vertebral Tenderness Extremities: Normal Range of Motion, Non-Tender, Normal Capillary Refill, Pedal Edema (Trace pedal/pretibial edema bilaterally). No: Rodri's Sign Skin: Reports: Warm, Dry, Intact. Denies: Ecchymosis Neurological: Reports: No New Focal Deficit Psy/Mental Status: Reports: Alert, Normal Affect, Normal Mood. Denies: Agitated, Hallucinations, Withdrawal Symptoms EKG INTERPRETATION EKG Date: 03/08/20 Time: 09:07 (.) Rhythm: NSR Rate (Beats/Min): 68 Munith: Normal (Neutral cardiac axis) P-Wave: Enlarged (Mild diffuse biphasic P waves) QRS: Normal (0.09 seconds with borderline repolarization changes) ST-T: Other (Stable T wave inversion in lead V1 with nonspecific ST changes in lead V2) MO/PQ Interval: 0.19 seconds with mild poor R wave progression in the anterior leads Comparison: No Change (Last EKG on 03/07/2020) EKG Interpretation Comments: 1. No acute ischemic changes 2. Repolarization changes 3. Left atrial enlargement by EKG
[2020-03-08] MEDS ORDERED: ATORVASTATIN 20 MG PO SCH ×2 (20:00→22:00)
[2020-03-08] MEDS ORDERED: INSULIN DETEMIR SUBCUT SCH ×2 (20:00)
[2020-03-08] MEDS ORDERED: ATORVASTATIN 10 MG PO SCH (20:00)
== END 2020-03-08 13:40 | disposition home or self-care (01) ==
LOC: LL.ED 14:45 → LL.MS 17:09
PROVIDERS: ADMIT Emergency Medicine; ATTEND Family Medicine
DX: R07.89 Other chest pain (principal); E11.9 Type 2 diabetes mellitus without complications; I10 Essential (primary) hypertension; E78.5 Hyperlipidemia, unspecified; R79.89 Other specified abnormal findings of blood chemistry; K21.9 Gastro-esophageal reflux disease without esophagitis; D64.9 Anemia, unspecified; E83.42 Hypomagnesemia; F41.9 Anxiety disorder, unspecified; F32.9 Major depressive disorder, single episode, unspecified; E78.49 Other hyperlipidemia; R19.7 Diarrhea, unspecified; E87.1 Hypo-osmolality and hyponatremia; E78.00 Pure hypercholesterolemia, unspecified; E66.9 Obesity, unspecified; Z87.891 Personal history of nicotine dependence; Z79.82 Long term (current) use of aspirin; Z79.899 Other long term (current) drug therapy; Z20.828 Contact with and (suspected) exposure to other viral communicable diseases; Z88.5 Allergy status to narcotic agent; Z79.4 Long term (current) use of insulin; Z68.32 Body mass index [BMI] 32.0-32.9, adult
CPT/HCPCS: 36415; 71046; 71275; 80048; 80053; 82550; 82553; 82962; 83605; 83735; 83880; 84443; 84484; 85025; 85610; 85730; 87045; 87046; 87328; 87329; 87338; 93005; 96374; 99285-25; A9270-GY; C9113; G0378; J1815-GY; Q9967; U0002

== ENCOUNTER 2020-03-23 07:57 | Day surgery (SDC) | payer MEDICARE, BC ==
[~2020-03-23 07:57] MED LIST: Sodium Chloride 0.9% 10 ML Syringe FLUSH PRN
[2020-03-23] MEDS: Lactated Ringers 1,000 ML IV ONE (08:30)
[2020-03-23] MEDS ORDERED: Propofol 200 MG/20 ML SDV ONE ×2 (08:38→09:29)
[2020-03-23] MEDS ORDERED: Midazolam 1 MG/ML 2 ML SDV ONE ×2 (08:38→09:29)
--- NOTE | 2020-03-23 09:25 | PCM.HPR ---
H & P Addendum review - H & P Addendum Review Date of Original H & P: 03/07/20 Date Reviewed: 03/23/20 Time Reviewed: 09:25 Patient was Examined: No Changes
[2020-03-23] MEDS ORDERED: Glycopyrrolate 0.2 MG/ML SDV ONE (09:29)
[2020-03-23] MEDS ORDERED: Lidocaine 2% 100 MG/5 ML Syringe ONE (09:29)
--- NOTE | 2020-03-23 09:43 | PCM.OPNOTE ---
- General Post-Op/Procedure Note Date of Surgery/Procedure: 03/23/20 Operative Procedure(s): EGD with Bx Findings: 3 cm HH Pre Op Diagnosis: GERD Post-Op Diagnosis: Same Anesthesia Technique: MAC Primary Surgeon: Aidan Hobbs Anesthesia Provider: Marie Vargas EBTaniya in mLs: 0 Complications: None Condition: Good
--- NOTE | 2020-03-23 12:30 | OR ---
Date of Procedure: 03/23/2020 PREOPERATIVE DIAGNOSIS: Epigastric pain with GERD. POSTOPERATIVE DIAGNOSES: 1. Epigastric pain. 2. Hiatal hernia. PROCEDURE: EGD with biopsy. ANESTHESIA: IV sedation. PROCEDURE IN DETAIL: Patient was brought to procedure room, where she was placed on left side and IV sedation administered. Oral bite block was placed and the upper endoscope advanced into the esophagus under direct vision without difficulty. Vocal cords were viewed and were normal. The scope was advanced to the third portion of the duodenum. Duodenum and pylorus were normal. Antrum and body of the stomach were normal. Retroflexion reveals a regular hiatal hernia of approximately 3 cm in length. The squamocolumnar junction was slightly irregular and there was some evidence of mild inflammation. I took 2 biopsies from the cardia of the stomach inside the hiatal hernia and also 2 more biopsies from the distal esophagus just above the squamocolumnar junction. There were no ulcers, erosions, or obvious gastritis. Air was removed from the stomach, and the scope withdrawn through the remaining esophagus which appeared normal. The patient tolerated the procedure well and returned to recovery in stable condition. I will have the patient follow up with Anastacia Mercado next week for review of biopsies and ongoing management. MATHEUS AZUL MD /[id number]
== END 2020-03-23 11:12 | disposition home or self-care (01) ==
LOC: LL.SDS 07:57
PROVIDERS: ATTEND Surgery
DX: K44.9 Diaphragmatic hernia without obstruction or gangrene (principal); K21.0 Gastro-esophageal reflux disease with esophagitis; R19.7 Diarrhea, unspecified; F41.9 Anxiety disorder, unspecified; R07.89 Other chest pain; F32.9 Major depressive disorder, single episode, unspecified; E11.9 Type 2 diabetes mellitus without complications; E66.9 Obesity, unspecified; E78.00 Pure hypercholesterolemia, unspecified; I10 Essential (primary) hypertension; E78.49 Other hyperlipidemia; Z79.899 Other long term (current) drug therapy; Z79.4 Long term (current) use of insulin; Z87.891 Personal history of nicotine dependence
CPT/HCPCS: 00731; 82962; J2001; J2250; J2704; J3490; J7120

== ENCOUNTER 2020-10-19 11:05 | Day surgery (SDC) | payer MEDICARE, BC ==
[~2020-10-19 11:05] MED LIST changes: +Lactated Ringers 1,000 ML IV SCH; +Midazolam 1 MG/ML 2 ML SDV ONE; +Propofol 200 MG/20 ML SDV ONE
--- NOTE | 2020-10-19 11:57 | PCM.HPR ---
H & P Addendum review - H & P Addendum Review Date of Original H & P: 10/12/20 Date Reviewed: 10/19/20 Time Reviewed: 11:50 Patient was Examined: No Changes
[2020-10-19] MEDS ORDERED: Propofol 200 MG/20 ML SDV ONE (12:05)
[2020-10-19] MEDS ORDERED: Midazolam 1 MG/ML 2 ML SDV ONE (12:05)
--- NOTE | 2020-10-19 12:50 | PCM.OPNOTE ---
- General Post-Op/Procedure Note Date of Surgery/Procedure: 10/19/20 Operative Procedure(s): Colonoscopy Findings: Normal to Asc Colon, very tortuous Pre Op Diagnosis: Change in Bowel Habits Post-Op Diagnosis: Same Anesthesia Technique: [place] Primary Surgeon: Aidan Hobbs Anesthesia Provider: Marie Vargas Complications: None Condition: Good
--- NOTE | 2020-10-20 09:34 | OR ---
Date of Procedure: 10/19/2020 PREOPERATIVE DIAGNOSIS: Change in bowel habits. POSTOPERATIVE DIAGNOSIS: Normal colonoscopy to the ascending colon. PROCEDURE: Colonoscopy to the ascending colon. ANESTHESIA: IV sedation. PROCEDURE IN DETAIL: Patient was brought to the procedure room where she was placed on her left side and IV sedation administered. Digital rectal exam was performed, which was normal. Colonoscope was inserted and advanced to the level of the ascending colon with significant difficulty getting through a very tortuous looping colon. Despite changing to the supine position and providing pressure on her abdomen, I was unable to reach the cecum. I felt that I had passed the hepatic flexure and could see what appeared to be an ileocecal valve but could not identify the cecum with certainty. Upon withdrawing, the ascending, transverse, and descending colon were tortuous but otherwise normal. Sigmoid colon was very tortuous but otherwise normal. Rectum was normal and retroflexion was normal. Air was removed and the scope withdrawn. Patient tolerated the procedure well, returned to recovery in stable condition. The patient does not need another colonoscopy due to her age. If further evaluation of her GI symptoms is necessary, CT scan of the abdomen and pelvis should be considered. MATHEUS AZUL MD /[id number]
== END 2020-10-19 14:00 | disposition home or self-care (01) ==
LOC: LL.SDS 11:05
PROVIDERS: ATTEND Surgery
DX: R19.4 Change in bowel habit (principal); K21.9 Gastro-esophageal reflux disease without esophagitis; Z01.812 Encounter for preprocedural laboratory examination; Z20.822 Contact with and (suspected) exposure to COVID-19; Z88.5 Allergy status to narcotic agent; Z79.899 Other long term (current) drug therapy; Z79.82 Long term (current) use of aspirin; Z87.891 Personal history of nicotine dependence
CPT/HCPCS: 00812; 82962; J2250; J2704; J7120; U0002

== ENCOUNTER 2024-08-07 12:31 | Emergency (ER) | payer MEDICARE ==
[2024-08-07 12:58] LABS: BASOPHILS ABSOLUTE AUTO 0.05 K/uL (0.00-0.20); BASOPHILS PERCENT AUTO 0.5 % (0.0-2.0); EOSINOPHILS ABSOLUTE AUTO 0.13 K/uL (0.00-0.50); EOSINOPHILS PERCENT AUTO 1.4 % (0.0-5.0); HEMOGLOBIN 13.3 g/dL (11.7-15.5); IMMATURE GRAN ABSOLUTE AUTO 0.01 10^3/uL (0.00-0.04); IMMATURE GRAN PERCENT AUTO 0.1 % (0.0-0.4); LYMPHOCYTES ABSOLUTE AUTO 1.66 K/uL (0.50-3.50); MEAN CORPUSCULAR HEMOGLOBIN 28.9 pg (28.2-33.3); MEAN CORPUSCULAR HGB CONC 32.4 g/dL (31.7-36.0); MEAN CORPUSCULAR VOLUME 89.1 fL (84.0-98.0); MONOCYTES ABSOLUTE AUTO 0.63 K/uL (0.00-1.00); MONOCYTES PERCENT AUTO 6.8 % (2.0-14.0); NEUTROPHILS ABSOLUTE AUTO 6.72 K/uL (1.40-7.00); NEUTROPHILS PERCENT AUTO 73.2 % (45.0-80.0); PLATELET COUNT,PLT 266 K/uL (150-350); WHITE BLOOD CELL COUNT,WBC 9.2 K/uL (4.0-10.2)
[2024-08-07 13:14] LABS: APPEARANCE,URINE CLEAR; BILIRUBIN,URINE NEGATIVE (NEGATIVE); COLOR,URINE YELLOW; GLUCOSE,URINE >=1000 mg/dL (NEGATIVE); KETONES,URINE NEGATIVE (NEGATIVE); LEUKOCYTE ESTERASE,URINE NEGATIVE (NEGATIVE); NITRITE,URINE NEGATIVE (NEGATIVE); OCCULT BLOOD,URINE TRACE-INTACT (NEGATIVE); PH,URINE 5.5 (5.0-9.0); PROTEIN,URINE NEGATIVE (NEGATIVE); UROBILINOGEN,URINE 0.2 E.U./dL (0.2-1.0)
[2024-08-07 13:26] LABS: ALBUMIN 3.3 g/dL (3.4-5.0); ANION GAP 7.7 meq/L (7-15); BILIRUBIN TOTAL 0.6 mg/dL (0.2-1.0); CALCIUM 9.4 mg/dL (8.5-10.1); CARBON DIOXIDE,CO2 29.3 mmol/L (21.0-32.0); CREATININE 0.8 mg/dL (0.51-1.17); EST CRCL DRUG DOSING (CG) 57.2 mL/min; POTASSIUM,K 4.5 mmol/L (3.5-5.1); PROTEIN TOTAL,TP 7.5 g/dL (6.4-8.2)
[2024-08-07 13:36] LABS: RBC,URINE 0-5 /HPF; WBC,URINE 0-5 /HPF
[2024-08-07 13:37] LABS: BACTERIA,URINE NOT SEEN /HPF (NONE TO FEW); EPITHELIAL CELLS,URINE OCCASIONAL /LPF
[2024-08-07] MEDS ORDERED: Sodium Chloride 0.9% 10 ML Syringe FLUSH PRN (13:58)
[2024-08-07] MEDS: Iopamidol 612 MG/ML 100 ML Bottle IVPUSH ONE (14:28)
[2024-08-07] MEDS: Take Home: Amoxicillin/Clavulanate K 875-125 MG Tab, 6 Tab Pack PO ONE (15:42)
== END 2024-08-07 15:45 | disposition home or self-care (01) ==
LOC: LL.ED 12:31
DX: K57.92 Diverticulitis of intestine, part unspecified, without perforation or abscess without bleeding (principal); E27.9 Disorder of adrenal gland, unspecified; I10 Essential (primary) hypertension; M19.90 Unspecified osteoarthritis, unspecified site; E78.00 Pure hypercholesterolemia, unspecified; E03.9 Hypothyroidism, unspecified; E10.9 Type 1 diabetes mellitus without complications; Z88.8 Allergy status to other drugs, medicaments and biological substances; Z79.4 Long term (current) use of insulin; Z79.82 Long term (current) use of aspirin; Z79.899 Other long term (current) drug therapy
CPT/HCPCS: 36415; 74019; 74177; 80053; 81001; 83605; 85025; 87428-QW; 99284; A9270-GY; Q9967